=== PATIENT | male | born 1935 | race Caucasian/White ===

== ENCOUNTER → 2016-08-12 | Outpatient (CLI) | payer MEDICARE, BC, OTHER ==
[~2016-08-12] MED LIST: ADV250INH INH; ATEN25TA PO; ATOR1TAB19 PO; AUGM875T27 PO; COUM1TAB17 PO; COUM6TAB PO; FLAG500T PO; FURO20TA2 PO; MULT1TAB8 PO; TYLE325T5 PO; VITA500046 PO
--- NOTE | 2016-08-12 18:23 | REP ---
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 The recent CT of the abdomen 07/27/2016 identified a large right abdominal wall mass. Whole body PET CT scanning is performed from skull base to the upper thighs. Neck and supraclavicular areas: There is artifactual uptake in the splenium capitis muscles at the occiput bilaterally. There is focal hypermetabolic uptake posteromedially in the right orbit/wall of the right maxillary sinus with a standard uptake value of 9.7. This focus measures approximate 1 cm in diameter. There is artifactual uptake in the vocal cords. Chest: There are no hypermetabolic foci. Abdomen, pelvis and upper thighs: There is a large mass in the wall of the abdomen on the right, similar to that on the comparison CT. The majority of this mass appears to be low density although there are small interspersed foci of soft tissue density. Uptake within a sales donor recruitment representative soft tissue focus measures a standard uptake value of 1.5, non hypermetabolic. There is diffuse intense uptake throughout the gastric fundus with a standard uptake value of 8.3, hypermetabolic. There is nonspecific bowel uptake. Impression: There is a 1 cm hypermetabolic focus posteromedially in the wall of the right orbit/wall of the right maxillary sinus. Consider ENT/ophthalmology consult in view of the history of carcinoma of the larynx. The patients known large mass in the right abdominal wall demonstrates no hypermetabolic uptake. There is intense hypermetabolic uptake throughout the wall of the gastric fundus. Gastroscopy might be considered for further evaluation. The study is performed with 9.7 mCi of F 18 FDG. Signed by Allen Feliciano MD 08/12/2016 06:14 P
== END ==
LOC: M RAD 13:09
PROVIDERS: ATTEND Internal Medicine
DX: R22.2 Localized swelling, mass and lump, trunk (principal); Z85.21 Personal history of malignant neoplasm of larynx; Z08 Encounter for follow-up examination after completed treatment for malignant neoplasm
CPT/HCPCS: 78815; A9552

== ENCOUNTER → 2016-09-03 | Outpatient (CLI) | payer MEDICARE, BC, OTHER ==
[~2016-09-03] VITALS: Ht 167.6 cm; Wt 110.7 kg
[~2016-09-03] MED LIST changes: +ALLO10TA PO; +FURO1TAB15 PO; +NS 1,000 ML IV SCH; +SPIR25TA2 PO; +VITA2000 PO
--- NOTE | 2016-09-03 11:41 | ROOR ---
Patient Name: Jet Weems Procedure Date: 09/03/2016 11:15 AM Date of : 1935 Age: 80 Room: [facility] Gender: Male Note Status: Finalized Procedure: Upper GI endoscopy Indications: Abnormal PET scan of the GI tract Providers: Oleg Sousa Jr, MD Referring MD: Nikki Laura DO Requesting Provider: Medicines: Propofol per Anesthesia Complications: No immediate complications. Procedure: Pre-Anesthesia Assessment: - Prior to the procedure, a History and Physical was performed, and patient medications and allergies were reviewed. The patient is competent. The risks and benefits of the procedure and the sedation options and risks were discussed with the patient. All questions were answered and informed consent was obtained. Patient identification and proposed procedure were verified by the physician and the nurse in the pre-procedure area and in the procedure room. Mental Status Examination: alert and oriented. Airway Examination: normal oropharyngeal airway and neck mobility. Respiratory Examination: clear to auscultation. CV Examination: normal. ASA Grade Assessment: II - A patient with mild systemic disease. After reviewing the risks and benefits, the patient was deemed in satisfactory condition to undergo the procedure. The anesthesia plan was to use moderate sedation / analgesia (conscious sedation). Immediately prior to administration of medications, the patient was re-assessed for adequacy to receive sedatives. The heart rate, respiratory rate, oxygen saturations, blood pressure, adequacy of pulmonary ventilation, and response to care were monitored throughout the procedure. The physical status of the patient was re-assessed after the procedure. The Endoscope was introduced through the mouth, and advanced to the third part of duodenum. The upper GI endoscopy was accomplished without difficulty. The patient tolerated the procedure well. Findings: The middle third of the esophagus and lower third of the esophagus were normal. Non-severe esophagitis was found at the gastroesophageal junction. Patchy moderate inflammation with hemorrhage characterized by adherent blood, congestion (edema), erythema and friability was found in the gastric body, in the gastric antrum and in the prepyloric region of the stomach. Biopsies were taken with a cold forceps for histology. The first portion of the duodenum, second portion of the duodenum and third portion of the duodenum were normal. Patchy moderate inflammation characterized by congestion (edema), erythema, friability and granularity was found in the duodenal bulb. A non-bleeding Zenker's diverticulum with a small opening, no impacted food and no stigmata of recent bleeding was found. Impression: - Normal middle third of esophagus and lower third of esophagus. - Non-severe reflux esophagitis. - Gastritis with hemorrhage. Biopsied. - Normal first portion of the duodenum, second portion of the duodenum and third portion of the duodenum. - Duodenitis. - Zenker's diverticulum. Recommendation: - Discharge patient to home (ambulatory). - Return to my office in 3 weeks. Oleg Sousa MD Oleg Sousa Jr, MD 09/03/2016 11:40:38 AM This report has been signed electronically. Number of Addenda: 0 Note Initiated On: 09/03/2016 11:15 AM Estimated Blood Loss: Estimated blood loss: none.
[2016-09-03 12:00] VITALS: BP 101/67
== END | disposition home or self-care (01) ==
LOC: M OPP 10:42
PROVIDERS: ATTEND Surgery
DX: R93.8 Abnormal findings on diagnostic imaging of other specified body structures (principal); K21.0 Gastro-esophageal reflux disease with esophagitis; K29.71 Gastritis, unspecified, with bleeding; K29.80 Duodenitis without bleeding; K22.5 Diverticulum of esophagus, acquired; I71.4 Abdominal aortic aneurysm, without rupture; I12.9 Hypertensive chronic kidney disease with stage 1 through stage 4 chronic kidney disease, or unspecified chronic kidney disease; E78.5 Hyperlipidemia, unspecified; I48.91 Unspecified atrial fibrillation; E66.9 Obesity, unspecified; I50.9 Heart failure, unspecified; I25.2 Old myocardial infarction; K80.20 Calculus of gallbladder without cholecystitis without obstruction; M19.90 Unspecified osteoarthritis, unspecified site; R06.2 Wheezing; J44.9 Chronic obstructive pulmonary disease, unspecified; R06.02 Shortness of breath; Z85.818 Personal history of malignant neoplasm of other sites of lip, oral cavity, and pharynx; N18.4 Chronic kidney disease, stage 4 (severe); R60.9 Edema, unspecified; Z85.828 Personal history of other malignant neoplasm of skin; Z87.891 Personal history of nicotine dependence; Z79.01 Long term (current) use of anticoagulants; Z79.899 Other long term (current) drug therapy

== ENCOUNTER → 2017-09-27 | Outpatient (REF) | payer MEDICARE, BC, OTHER ==
[2017-09-27 14:08] LABS: INR 3.86; PROTHROMBIN TIME 39.9 SECONDS (12.4-14.5)
== END ==
LOC: M LAB REF 13:15
DX: Z79.01 Long term (current) use of anticoagulants (principal); I48.2 Chronic atrial fibrillation
CPT/HCPCS: 85610

== ENCOUNTER → 2018-08-16 | Outpatient (CLI) | payer MEDICARE, BC, OTHER ==
[~2018-08-16] MED LIST changes: -AUGM875T27 PO; +AUGM875T28 PO; -FURO1TAB15 PO; +FURO80TA2 PO; -NS 1,000 ML IV SCH; +SPIR-10 PO; -SPIR25TA2 PO
--- NOTE | 2018-08-16 10:50 | RADONC ---
RADIATION ONCOLOGY CONSULTATION NOTE DATE: 08/16/2018 CHART NUMBER: [id number] DIAGNOSIS: Liposarcoma. STAGE: Recurrent. CONSULTATION NOTE: Mr. Pulido is a very pleasant, 82-year-old white male with the diagnosis of an extensive right retroperitoneal liposarcoma who is presenting to us today for discussion of possible low-dose radiation to the area to slow its growth. HISTORY OF PRESENT ILLNESS: The patient was initially seen by me on 12/10/2005. Apparently, x-rays done in early 2005 found an abdominal aortic aneurysm. On 10/29/2015, a 5 cm paraspinal mass adjacent to the psoas muscle was noted. Pathology revealed a right retroperitoneal mass consistent with an atypical lipomatous lesion. There were some bizarre and pleomorphic nuclei identified and there was a great concern for a low grade liposarcoma. By December of 2005, the mass was just inferior to the right kidney. At that time, the patient underwent surgical resection of his extensive right retroperitoneal liposarcoma and then en bloc right hemicolectomy and right nephroureterectomy in May 2006. Final pathology revealed a 30.4 cm well-differentiated liposarcoma. The patient has been followed and has stage IV renal failure and recently was found to have a right flank mass by Dr. Garcia, his licensing and registration director. A CT scan done on 06/01/2018 showed a complex mass measuring 13.9 cm x 13.8 cm x 11.4 cm in the right abdominal wall extending into the right retroperitoneal space, once again consistent with a liposarcoma. The patient has a history of atrial fibrillation as well as a myocardial infarction and congestive heart failure. He also has stage IV kidney failure. He was seen by Dr. Worthy, who discussed surgery with him. Surgical resection would require resection of the right flank wall and retroperitoneal tumor. It would also remove the mass from the inguinal canal. The reconstruction would require a large piece of mesh. The patient was definitely against surgery as he is asymptomatic at this time and having no problems. He is aware of his great risks of surgery considering his other illnesses. The patient as noted above has no symptoms at this time and overall says he feels fine. In light of this, he came into my office saying he has decided against any radiation at the present time. PAST MEDICAL HISTORY: The patient's past medical history is as noted above. He also has a history of hyperlipidemia. He had an abdominal aortic hernia repair in the past. He has had cataract surgery. ALLERGIES: The patient has NO KNOWN DRUG ALLERGIES. SOCIAL HISTORY: The patient had smoked one pack of cigarettes per day for 60 years. He quit in April 2013. He drinks alcohol socially. FAMILY HISTORY: The patient's family history is positive for a mother with colon cancer. REVIEW OF SYSTEMS: The patient's review of systems is positive for some shortness of breath, hearing loss and decreased energy. It is otherwise noncontributory. Denies nausea, vomiting, fevers, chills, night sweats, diplopia, headaches, anxiety or depression, anorexia, weight loss, visual disturbances, chest pain, urinary or bowel difficulties, bone pain, or neurological problems. PHYSICAL EXAMINATION: The patient is a well-developed, well-nourished male in no acute distress. HEENT exam is normocephalic, atraumatic. Extraocular movements are intact. There is no palpable cervical, supraclavicular, infraclavicular, axillary, or inguinal lymphadenopathy present. Lungs are clear to auscultation and percussion. Heart has a regular rate and rhythm. Abdominal examination reveals a right-sided flank mass, which is firm and fixed to the abdominal wall consistent with his above history. Skeletal examination reveals no tenderness to pressure or percussion of the bony skeleton. Extremities reveal no clubbing, cyanosis, or edema. Neurologic exam is grossly intact, as is the remainder of the physical examination. ASSESSMENT: I had a very lengthy discussion with this patient. I made clear to him that at this point he cannot really make a wrong decision. I asked him to feel secure in whatever decision he makes. I explained him that radiation would not be curative and the only goal of radiation would be to perhaps a slow down the growth of this tumor. I showed the patient his CT scan and explained him the proximity of the small bowel which limits our radiation dose. Luckily the kidney on that side has been removed and so we could deliver approximately 4500 cGy to the region if he so desired. Since this is not a curative treatment the goal is palliation, and at this time, the patient has nothing to palliate. He stated clearly that has a good quality of life at this time and does not wish to compromise that at all. He reports that this is the reason he did not have the surgery. I cannot disagree with this patient's reason. In light of this, I have let him know that we are available to him should he change his mind. I have given him my cell phone number as well as the office number and we are available to him at anytime if he decides he wishes to undergo radiation. I do not see any great herron in this considering that he has had this disease for 13 years. I let him know that eventually this will be causing him some problems and we could always try radiation at that time as a palliative issue if he so desires. I have not set him up at this time for any followup in our office except on a p.r.n. basis. Thank you for allowing us to participate in the care of this very pleasant gentleman. If I could be of any further assistance, please see us feel free to contact me at anytime. As always, warm regards. Copy to: Dr. Garcia cc: Saul Worthy MD MTDD
== END ==
LOC: M ONCR 08:53
PROVIDERS: ATTEND Radiology Radiation Oncology
DX: C48.0 Malignant neoplasm of retroperitoneum (principal)

== ENCOUNTER → 2018-09-06 | Outpatient (REF) | payer MEDICARE, OTHER | LOC: M LAB REF 16:44 | PROVIDERS: ATTEND Internal Medicine | DX: S90.425A Blister (nonthermal), left lesser toe(s), initial encounter (principal) ==

== ENCOUNTER 2019-02-02 12:04 | Inpatient (IN) | payer MEDICARE, BC, OTHER ==
[~2019-02-02] VITALS: Ht 172.7 cm; Wt 94.2 kg
[2019-02-02] MEDS ORDERED: D200CAP3 PO (12:23)
[2019-02-02] MEDS ORDERED: METO1TAB87 PO (12:23)
[2019-02-02] MEDS ORDERED: OMEP-221 PO (12:23)
[2019-02-02] MEDS ORDERED: CALC1CAP31 PO (12:23)
[2019-02-02] MEDS ORDERED: WARF-23 PO ×2 (12:23)
[2019-02-02] MEDS ORDERED: IPRATROPIUM 0.5MG/ALBUTEROL 2.5MG INH SOL UD 3ML (DUONEB)(J7620) NEB ONE (12:45)
[2019-02-02] MEDS ORDERED: FUROSEMIDE 40 MG/4 ML VIAL (J1940) IV ONE (12:45)
[2019-02-02 12:59] LABS: BASO # 0.1 10^3/uL (0.0-0.2); BASO % 0.6 % (0.0-1.0); EOS # 0.1 10^3/uL (0.0-0.5); EOS % 1.2 % (0.0-3.0); HEMATOCRIT 43.1 % (42.0-52.0); HEMOGLOBIN 13.3 g/dl (13.5-17.5); LYMPH # 0.9 10^3/uL (1.5-5.0); MEAN CORPUSCULAR HEMOGLOBIN 29.8 pg (27.0-33.0); MEAN CORPUSCULAR HGB CONC 30.9 g/dl (32.0-36.5); MEAN CORPUSCULAR VOLUME 96.6 fl (80.0-96.0); MONO # 0.8 10^3/uL (0.0-0.8); NEUTROPHILS # 9.3 10^3/uL (1.5-8.5); NEUTROPHILS % 82.8 % (36.0-66.0); PLATELET COUNT, AUTOMATED 224 10^3/uL (150-450); RED BLOOD COUNT 4.46 10^6/uL (4.30-6.10); WHITE BLOOD COUNT 11.2 10^3/uL (4.0-10.0)
[2019-02-02 13:07] LABS: ABG O2 SATURATION 89.5 % (95.0-99.0); ABG PARTIAL PRESSURE O2 61.7 mmHg (75.0-100.0); ABG STANDARD HCO3 27.8 MEQ/L (22.0-26.0); ABG TOTAL CO2 33.9 MEQ/L (23.0-31.0); ABG pH (ARTERIAL) 7.323 UNITS (7.350-7.450)
--- NOTE | 2019-02-02 13:09 | REP ---
PORTABLE CHEST: AP portable view of the chest is performed and compared to prior study 10/29/2008. There is cardiomegaly again noted. Basilar interstitial coarsening is stable. No acute infiltrate is seen. There is calcification of the thoracic aorta. The mediastinal silhouette is unchanged. IMPRESSION: Cardiomegaly. No acute infiltrate. Electronically Signed by Allen Davies MD 02/02/2019 01:37 P
[2019-02-02 13:13] LABS: INR 3.69; PROTHROMBIN TIME 36.6 SECONDS (11.8-14.0)
[2019-02-02 13:47] LABS: ALBUMIN 3.8 GM/DL (3.2-5.2); BILIRUBIN,DIRECT 0.2 MG/DL (0.0-0.2); BILIRUBIN,TOTAL 0.5 MG/DL (0.2-1.0); CALCIUM LEVEL 9.5 MG/DL (8.8-10.2); CK-MB VALUE MASS 3.5 NG/ML (<3.6); CREATININE FOR GFR 1.87 MG/DL (0.70-1.30); GLOMERULAR FILTRATION RATE 36.9 (>35); MB/CK RELATIVE INDEX 4.32 (< OR =4); POTASSIUM SERUM 3.9 MEQ/L (3.5-5.1); TOTAL PROTEIN 6.6 GM/DL (6.4-8.2); TROPONIN I 0.03 NG/ML (< 0.10)
[2019-02-02] MEDS ORDERED: IPRATROPIUM 0.5MG/ALBUTEROL 2.5MG INH SOL UD 3ML (DUONEB)(J7620) NEB PRN (16:15)
[2019-02-02] MEDS: FUROSEMIDE 100 MG/10 ML VIAL (J1940) IV SCH (18:28)
[2019-02-02 19:45] VITALS: BP 138/82
[2019-02-02] MEDS ORDERED: ACETAMINOPHEN TAB 650MG DOSE (2X325MG) PO ONE (20:45)
--- NOTE | 2019-02-02 20:48 | HPE ---
DATE OF ADMISSION: 02/02/2019 PRIMARY CARE PROVIDER: Dr. Nikki Laura PRINCIPAL DIAGNOSIS: Decompensated congestive heart failure. HISTORY: Jet Weems is an 83-year-old patient of Dr. Nikki Laura who has had increasing lower extremity edema, shortness of breath, cough over several days. He presents to the emergency room with decompensated congestive heart failure. He is being admitted for further treatment. He has a history, he says, of "30 years of congestive heart failure," but he does not have an identified metallurgical inspector. MEDICAL HISTORY: His medical history shows atrial fibrillation, chronic obstructive pulmonary disease (COPD), carcinoma of the larynx, abdominal aortic aneurysm, history of coronary artery disease or ischemic heart disease, hypertensive heart disease, chronic kidney disease stage III. SURGICAL HISTORY: Basal cell carcinoma, anal fistula 02/10, carcinoma surgery of the larynx 09/11, laser surgery for laryngeal carcinoma 10/12, 11/11, 07/13, 10/2009, 12/2010, removal of 20 kilogram liposarcoma right side, removal of right kidney and partial colectomy with appendectomy at [facility] 09/12, incisional hernia repair 04/15, cataract extraction 2014, blepharoplasty 2014, colonoscopy 2013. FAMILY HISTORY: Mother had colon cancer. SOCIAL HISTORY: Quit smoking 2013 after 60 pack years. Alcohol use is rare. REVIEW OF SYSTEMS: No chest pain, palpitations, epistaxis, rectal bleeding or urinary bleeding. MEDICATIONS: See reconciliation list. PHYSICAL EXAMINATION: Blood pressure 140/67, pulse of 92, respiratory rate 18, 92% oxygen (O2) saturation on one liter. General Appearance: He is resting comfortably, lying sitting upright. Pupils equal and reactive to light. Tympanic membranes (TMs) normal. Pharynx benign. He is hoarse with abdominal speech pattern. No facial droop or weakness. Jugular venous distention (JVD) is present. Lungs have decreased breath sounds, rales at both bases. Heart: Regular rate and rhythm, 1/6 systolic ejection murmur. Abdomen: Soft, obese, nontender. No masses. 2+ peripheral edema, venous stasis changes. LABORATORY: White count 11.2, hemoglobin 13.3, platelets 244. Sodium 145, potassium 3.9, BUN 36, creatinine 1.87, BNP 4200, INR 3.7. Chest x-ray: Cardiomegaly, interstitial markings. IMPRESSION: 1. Decompensated congestive heart failure. Will get an echocardiogram and initiate diuresis with intravenous Lasix, monitor electrolytes on a daily basis, salt and fluid restriction advised. 2. Atrial fibrillation Rate is controlled. Continue metoprolol. Hold warfarin today due to excessive anticoagulation, daily INRs have been ordered. 3. Laryngeal cancer. Followed by [facility] N[facility] Throat (ENT). 4. Chronic kidney disease. Continue calcitriol. I do not know his baseline renal function. Daily labs have been ordered. 5. Hyperlipidemia. Continue atorvastatin 40 mg daily. 6. History of gout. Continue allopurinol [address] Mays will be managing him after admission.
[2019-02-02] MEDS: IPRATROPIUM 0.5MG/ALBUTEROL 2.5MG INH SOL UD 3ML (DUONEB)(J7620) NEB SCH (22:13)
[2019-02-02 23:59] VITALS: BP 130/76
[2019-02-03] VITALS (7 sets, daily range): BP systolic 114–161; BP diastolic 45–81
--- NOTE | 2019-02-03 00:04 | ECGEPIP ---
[facility] - ED Test Date: 2019-02-02 Pat Name: JEOVANY GALE Department: Room: - Gender: Male Ground Products Director: [facility] : 1935 Requested By: OVIDIO Lance Order Number: [id number] Reading MD: Danyel Lacey Measurements Intervals Aiken Rate: 84 P: MS: 0 QRS: -54 QRSD: 121 T: -12 QT: 353 QTc: 418 Interpretive Statements ATRIAL FIBRILLATION WITH ABERRANT CONDUCTION OR VENTRICULAR PREMATURE COMPLEXES LEFT ANTERIOR FASCICULAR BLOCK NO PRIORS FOR COMPARISON Electronically Signed on 02-03-2019 0:04:27 EDT by Danyel Lacey
[2019-02-03] MEDS: IPRATROPIUM 0.5MG/ALBUTEROL 2.5MG INH SOL UD 3ML (DUONEB)(J7620) NEB SCH ×5 (00:13→23:58)
[2019-02-03] MEDS ORDERED: METOPROLOL 5 MG/5 ML VIAL IV STA (00:38)
[2019-02-03 00:41] LABS: ALBUMIN 3.7 GM/DL (3.2-5.2); BILIRUBIN,TOTAL 0.5 MG/DL (0.2-1.0); CALCIUM LEVEL 9.3 MG/DL (8.8-10.2); CK-MB VALUE MASS 3.5 NG/ML (<3.6); CREATININE FOR GFR 2.02 MG/DL (0.70-1.30); GLOMERULAR FILTRATION RATE 33.7 (>35); MAGNESIUM LEVEL 1.6 MG/DL (1.8-2.4); MB/CK RELATIVE INDEX 4.27 (< OR =4); PHOSPHORUS LEVEL 4.6 MG/DL (2.5-4.9); POTASSIUM SERUM 4.1 MEQ/L (3.5-5.1); TOTAL PROTEIN 6.4 GM/DL (6.4-8.2); TROPONIN I 0.03 NG/ML (< 0.10)
[2019-02-03 00:54] LABS: ABG SITE NOT GIVEN
[2019-02-03 00:57] LABS: ABG BASE EXCESS 2.6 (-2.0-2.0); ABG HCO3 33.1 MEQ/L (22.0-26.0); ABG O2 SATURATION 98.2 % (95.0-99.0); ABG PARTIAL PRESSURE O2 125.3 mmHg (75.0-100.0); ABG STANDARD HCO3 26.8 MEQ/L (22.0-26.0); ABG TOTAL CO2 35.6 MEQ/L (23.0-31.0)
[2019-02-03 00:58] LABS: ABG PARTIAL PRESSURE CO2 82.2 mmHg (35.0-45.0); ABG pH (ARTERIAL) 7.223 UNITS (7.350-7.450)
[2019-02-03] MEDS ORDERED: FUROSEMIDE 20 MG/2 ML VIAL (J1940) IV ONE (01:00)
--- NOTE | 2019-02-03 01:26 | IPNPDOC ---
Text Note Date of Service The patient was seen on 02/03/19. NOTE S: Called to bedside by nursing staff for increasing SOB and audible wheezing. Patient was assessed by respiratory therapy and given a breathing treatment, with resultant increased air movement in the bases. Patient does not appear in acute distress though expiratory wheezing remain audible. EKG and cardiac enzymes were performed and both were negative. Repeat ABG ordered and results listed below. O: Vitals: Temperature: 97.5, pulse: 113, respiratory rate: 30, blood pressure 158/87, pulse ox 97% on 2 L Physical Exam: Gen.: Patient alert and oriented, conversant Pulmonary: Diminished breath sounds in the bases bilaterally with scattered wheezing throughout. Heart: Regular rate and rhythm with faint systolic ejection murmur Extremities: 2+ pitting edema bilaterally Labs: Repeat ABG demonstrates a pH of 7.23, PCO2 of 82.2 PO2 of 125.3 Repeat chemistry showed potassium of 4.1 increased from 3.9. BUN/creatinine of 37/2.02 Troponins negative, EKG positive for atrial fibrillation Imaging: X-ray (02/03/19): Pending official radiology read. Imaging appears to demo nstrate increasing opacity particularly in the right lung, middle lobe. No evidence of effusions. A/P: 83-year-old gentleman with increasingly decompensated congestive heart failure and respiratory acidosis. Decompensated congestive heart failure Patient transferred to ICU for BiPAP given increasing respiratory acidosis. Repeat electrolytes show a decreased magnesium level of 1.6 Discussed case with cutter grinder operator. Agreeable with ICU transfer and trial of BiPAP. Suspect underlying COPD given extensive smoking history. If unable to tolerate BiPAP, consider continued neb treatments and steroids. Bazan cath placement for monitoring of urinary output. Pt previously ordered 80 mg Lasix decreased to 40 mg and administered prior to transfer given evidence of RASHAD. If decreased output, will plan to give additional 40 mg Lasix IV. Roof Painter discussed goals of care with patient, agreeable to DNR/DNI status. Atrial fibrillation 5 mg metoprolol IV given as patient's rates were climbing into the 120s-130s with bouts of bigemini. VS,Fishbone, I+O VS, Fishbone, I+O Laboratory Tests 02/02/19 12:39 Red Blood Count 4.46, Mean Corpuscular Volume 96.6 H, Mean Corpuscular Hemoglobin 29.8, Mean Corpuscular Hemoglobin Concent 30.9 L, Red Cell Distribut ion Width 15.7 H, Neutrophils (%) (Auto) 82.8 H, Lymphocytes (%) (Auto) 8.0 L, Monocytes (%) (Auto) 7.0 H, Eosinophils (%) (Auto) 1.2, Basophils (%) (Auto) 0.6, Neutrophils # (Auto) 9.3 H, Lymphocytes # (Auto) 0.9 L, Monocytes # (Auto) 0.8, Eosinophils # (Auto) 0.1, Basophils # (Auto) 0.1 02/02/19 23:57 Calcium Level 9.3, Phosphorus Level 4.6, Aspartate Amino Transf (AST/SGOT) 13, Alanine Aminotransferase (ALT/SGPT) 26, Total Creatine Kinase 82, Alkaline Phosphatase 115, Total Bilirubin 0.5, Total Protein 6.4, Albumin 3.7 Vital Signs Date Time Temp Pulse Resp B/P (MAP) Pulse Ox O2 Delivery O2 Flow Rate FiO2 02/03/19 00:49 113 158/87 02/03/19 00:10 30 02/02/19 23:59 97.5 97 2.0 02/02/19 19:15 Nasal Cannula I&O- Last 24 Hours up to 6 AM 02/03/19 06:00 Intake Total 0 ml Output Total 400 ml Balance -400 ml GME ATTESTATION GME ATTESTATION The faculty preceptor is aware and concurs with the plan as stated in the body of this note and will attest to such by his/her cosignature. NOMAN CAMARA DO Feb 03, 2019 01:26 JOE GALARZA MD Feb 06, 2019 05:53
[2019-02-03] MEDS ORDERED: MAG SULF 1GM/100ML (MAG RUN) 1 GM in IV 1 EA IV ONE (02:15)
[2019-02-03 04:40] LABS: ABG SITE NOT GIVEN
[2019-02-03 04:43] LABS: ABG BASE EXCESS 6.4 (-2.0-2.0); ABG HCO3 35.5 MEQ/L (22.0-26.0); ABG O2 SATURATION 93.5 % (95.0-99.0); ABG PARTIAL PRESSURE CO2 73.7 mmHg (35.0-45.0); ABG PARTIAL PRESSURE O2 72.3 mmHg (75.0-100.0); ABG STANDARD HCO3 30.1 MEQ/L (22.0-26.0); ABG TOTAL CO2 37.8 MEQ/L (23.0-31.0); ABG pH (ARTERIAL) 7.301 UNITS (7.350-7.450)
[2019-02-03] MEDS ORDERED: methylPREDNISolone INJ 40 MG/1 ML VIAL (J2920) IV ONE (05:00)
[2019-02-03 05:11] LABS: HEMATOCRIT 46.2 % (42.0-52.0); HEMOGLOBIN 13.7 g/dl (13.5-17.5); MEAN CORPUSCULAR HEMOGLOBIN 30.1 pg (27.0-33.0); MEAN CORPUSCULAR HGB CONC 29.7 g/dl (32.0-36.5); MEAN CORPUSCULAR VOLUME 101.5 fl (80.0-96.0); PLATELET COUNT, AUTOMATED 217 10^3/uL (150-450); RED BLOOD COUNT 4.55 10^6/uL (4.30-6.10); WHITE BLOOD COUNT 11.5 10^3/uL (4.0-10.0)
--- NOTE | 2019-02-03 05:12 | CR ---
DATE OF CONSULTATION: 02/03/2019 CHIEF COMPLAINT: Shortness of breath. HISTORY OF PRESENT ILLNESS: Mr. 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 The patient reports he was on Lasix as a home medication; however, he has not been taking it. He therefore has noticed some decreased urination in the past few days. The patient denies any chest pain, has not had any fevers or chills. He does have a cough, but is not productive. The patient has also noted some increased abdominal distension as well. He denies any abdominal pain. No nausea or vomiting. He does have some pain in the rectal area. The patient has a reported history of chronic obstructive pulmonary disease (COPD), although he denies being on any inhalers currently. He thinks he may have been told he has COPD in passing and had previously been prescribed inhalers, which he was noncompliant with as he did not take it help with his breathing and so has not continued with that. The patient also reports that he has recurrence of his liposarcoma with a palpable mass in his abdomen. He follows with oncology, as well as was seen by radiation oncology and surgery. The patient declined surgery given his other comorbidities and the risks with such an extensive surgery with the large mass. When he was seen by radiation oncology, the patient was relatively asymptomatic from the mass and it was discussed that as radiation would not be curative in this instance but slow the growth of his tumor and be for palliation only, and given that he does not have any active symptoms, as well as given the location of the tumor, there would be some limits with the radiation dose, he decided with the input from his radiation oncologist to hold off on radiation treatment. PAST MEDICAL HISTORY / SURGICAL HISTORY LIST: 1. Atrial fibrillation on Coumadin. 2. Chronic obstructive pulmonary disease (COPD). 3. 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 4. Basal-cell carcinoma anal fistula in 2003. 5. Coronary artery disease. 6. Congestive heart failure (CHF). 7. Chronic kidney disease (CKD). 8. Abdominal aortic aneurysm. 9. History of a liposarcoma on the right side with a partial colectomy and appendectomy and removal of his right kidney in 2006 10. Incisional hernia repair. 11. Cataract extraction. 12. Blepharoplasty FAMILY HISTORY: Mother with history of colon cancer. SOCIAL HISTORY: Former smoker, 60 pack years, quit in 2013. Rare alcohol use ALLERGIES:: No known drug allergies. . HOME MEDICATIONS LIST: - allopurinol - atorvastatin - calcitriol - vitamin D - Lasix 80 mg daily - metoprolol 25 mg daily - multivitamin - omeprazole - Coumadin 5 mg five days a week and 7.5 two days a week PHYSICAL EXAMINATION: Temperature 97.5, pulse of 113, respirations 38, blood pressure 158/87, O2 saturation 97% on 2 liters nasal cannula. Inputs are not documented. Outs reported as 400 mL. GENERAL: The patient is an obese male. He is sitting at the side of the bed, is awake and alert and oriented x3, but does appear intermittently drowsy. The patient has a hoarse voice but is able to speak in complete sentences. HEENT: Normocephalic, atraumatic. Moist mucous membranes. Pupils are reactive to light. JVD noted. CARDIOVASCULAR: Irregularly irregular, normal S1-S2, faint systolic ejection murmur LUNGS: Diminished breath sounds bilaterally with expiratory wheezing and more decreased breath sounds at the bases. No rhonchi noted. ABDOMEN: Soft, obese with a palpable firm mass in the right flank area. Nontender to palpation. LOWER EXTREMITIES: +2 pitting edema bilaterally with chronic venous stasis changes. LABORATORY DATA: WBC 11.22, hemoglobin 13.3, platelets 224. Chemistry: Sodium 145, potassium 4.1, chloride 100, bicarbonate 39 and BUN 37, creatinine 2.02. Glucose is 112, magnesium is 1.6, AST, ALT within normal limits. BNP 4237, troponin negative x2. INR 3.69. Arterial blood gas (ABG) initially on admission: pH 7.323, pCO2 of 63, pO2 of 61 Repeat ABG overnight 7.223, pCO2 of 82.2 and pO2 of 125.3. IMAGING: Chest x-ray shows cardiomegaly with increased interstitial markings bilaterally and atelectasis in the bases of the lungs. ASSESSMENT/PLAN: The patient is an 83-year-old male with a history of laryngeal cancer status post surgery, chronic obstructive pulmonary disease (COPD) not on home oxygen, coronary artery disease, congestive heart failure (CHF), atrial fibrillation on anticoagulation, history of a recurrent liposarcoma with previous history of a partial hemicolectomy and nephrectomy, chronic kidney disease (CKD), who is here with complaints of increasing shortness of breath and lower extremity edema for the past few days reports he has been noncompliant with his diuretics and has had decreasing urine output. On admission, the patient was noted to have evidence of lower extremity edema and chest x-ray shows some increased interstitial markings and vascular congestion consistent with pulmonary edema. He was also noted to have a significantly elevated BNP consistent with decompensated heart failure. The patient was given IV Lasix; however, has not been documented to have significant output. His initial ABG showed evidence of some mild worsening of his chronic hypercarbic respiratory failure, but a repeat ABG overnight showed continued worsening of his acute on chronic hypercarbic respiratory failure. This is likely in the setting of his decompensated CHF, but he does have a previous history of COPD and he did have some increased wheezing noted on examination. - Would start the patient on BiPAP for his acute on chronic hypercarbic respiratory failure. The patient was initially trial on settings of 15/8, but was noted to have tidal volume of only in the 200s so his settings were adjusted to 18/8 with a respiratory rate of 14 and FiO2 of 30%. Will repeat ABG on these settings and adjust further if needed. - Continue with the Lasix for diuresis. The patient was given an additional 40 mg IV Lasix at midnight. A Bazan was ordered to more accurately monitor his ins and outs; and if he has not had significant output with the midnight dose of Lasix, will give an additional 40 mg IV Lasix. He does have some evidence of CKD with an unknown baseline. He may have a component of acute kidney injury on chronic kidney disease (CKD) from his congestive heart failure (CHF) with cardiorenal syndrome. - His magnesium was low, will order repletion and continue to monitor his electrolytes and replete as needed - Continue with DuoNebs every 6 hours. Patient was noted to have wheezing and diminished air entry. Was given dose of solumedrol 40mg IV with improvement. - Discussed with the patient about goals of care. He explained that with his recurrent liposarcoma and given he did not want to proceed with surgery or radiation and he was not a chemotherapy candidate given his significant comorbidities his goals of care were about maximizing quality of life over potential quantity. After discussion, the patient expressed his wishes that he would like to be DO NOT RESUSCITATE and DO NOT INTUBATE, but he is agreeable to a trial of BiPAP. Deep vein thrombosis (DVT) prophylaxis. The patient is on Coumadin. INR is mildly supra-therapeutic. Would continue dose adjustments as per primary team. Code status DO NOT RESUSCITATE/DO NOT INTUBATE. The patient being transferred to ICU for BiPAP and closer monitoring. Total critical care time not including any procedures approx 1 hour and 50 mins MTDD
[2019-02-03] MEDS: FUROSEMIDE 100 MG/10 ML VIAL (J1940) IV SCH ×3 (05:20→11:45)
[2019-02-03 05:23] LABS: INR 3.91; PROTHROMBIN TIME 38.4 SECONDS (11.8-14.0)
[2019-02-03 05:33] LABS: CALCIUM LEVEL 9.6 MG/DL (8.8-10.2); CREATININE FOR GFR 2.06 MG/DL (0.70-1.30)
[2019-02-03] MEDS: CALCITRIOL 0.25 MCG CAP (S0169) PO SCH (08:29)
[2019-02-03] MEDS: VITAMIN D 1,000 INTERNATIONAL UNITS TABLET PO SCH (08:29)
[2019-02-03] MEDS: ATORVASTATIN 10 MG TAB PO SCH (08:30)
[2019-02-03] MEDS ORDERED: ALLOPURINOL 100 MG TAB PO SCH (09:00)
[2019-02-03] MEDS ORDERED: METOPROLOL TART 25 MG TABLET PO SCH ×2 (09:00→21:00)
[2019-02-03 10:05] LABS: MAGNESIUM LEVEL 2.1 MG/DL (1.8-2.4)
--- NOTE | 2019-02-03 11:51 | REP ---
Portable chest, 11:42 p.m., single AP view with the patient semi upright: Comparison is from 12:49 p.m. earlier this same date. The patient is rotated. There is cardiomegaly, unchanged. There is chronic interstitial coarsening compared to 10/29/2008, suggestive of chronic lung disease. The cardiomegaly is unchanged. The carly, mediastinum, skeletal structures are unchanged. Impression: Chronic cardiomegaly. Chronic mild interstitial coarsening. No acute findings. Electronically Signed by Allen Feliciano MD 02/03/2019 11:41 A
--- NOTE | 2019-02-03 12:35 | IPNPDOC ---
Text Note Date of Service The patient was seen on 02/03/19. NOTE Subjective: Patient complains of shortness of breath, he developed discolora tion overnight he was placed on the BiPAP. When I saw him the morning he still has labored breathing, no wheezes. Objective: Physical Exam: Obese male sitting up Gen.: Patient alert and oriented, conversant Pulmonary: Diminished breath sounds in the bases bilaterally no wheezes Heart: S1-S2, tachycardia at rate 120 Abdomen: Nontender, moderately distended Neuro: Cranial nerves from 2 through 12 intact Extremities: 1+ pitting edema bilaterally Assessment and plan: Patient is 83 years old male with past mental history of COPD, atrial fibrillation, CHF presented hospital with increased shortness of breath secondary to CHF exacerbation CHF exacerbation Patient developed significant dyspnea secondary to volume overload, patient was not compliant to his medical regimen. Patient developed good urine output I's and O's Continue current diuresis Cardiac diet Echo pending Acute on chronic hypercarbic respiratory failure Most likely secondary to CHF exacerbation. Patient doesn't have wheezes on the auscultation continue diuresis Monitor blood gas BiPAP when necessary, settings 18/8 with a respiratory rate of 14 and FiO2 of 30%. Electrolytes imbalance Magnesium was replaced COPD Most likely his dyspnea was associated with CHF exacerbation Patient has long history of smoking Continue DuoNeb Atrial fibrillation I increase the dose of metoprolol to 25 twice a day to control his tachycardia I will hold Coumadin for today due to supratherapeutic INR Laryngeal cancer. Followed by Ear, Nose and Throat (ENT). Chronic kidney disease. Continue calcitriol. I do not know his baseline renal function. Daily labs have been ordered. Hyperlipidemia. Continue atorvastatin 40 mg daily. History of gout. Continue allopurinol 100 mg daily VS,Fishbone, I+O VS, Fishbone, I+O Laboratory Tests 02/02/19 12:39 Red Blood Count 4.46, Mean Corpuscular Volume 96.6 H, Mean Corpuscular Hemoglobin 29.8, Mean Corpuscular Hemoglobin Concent 30.9 L, Red Cell Distribution Width 15.7 H, Neutrophils (%) (Auto) 82.8 H, Lymphocytes (%) (Auto) 8.0 L, Monocytes (%) (Auto) 7.0 H, Eosinophils (%) (Auto) 1.2, Basophils (%) (Auto) 0.6, Neutrophils # (Auto) 9.3 H, Lymphocytes # (Auto) 0.9 L, Monocytes # (Auto) 0.8, Eosinophils # (Auto) 0.1, Basophils # (Auto) 0.1 02/02/19 23:57 Calcium Level 9.3, Phosphorus Level 4.6, Aspartate Amino Transf (AST/SGOT) 13, Alanine Aminotransferase (ALT/SGPT) 26, Total Creatine Kinase 82, Alkaline Phosphatase 115, Total Bilirubin 0.5, Total Protein 6.4, Albumin 3.7 02/03/19 04:47 Red Blood Count 4.55, Mean Corpuscular Volume 101.5 H, Mean Corpuscular Hemoglo bin 30.1, Mean Corpuscular Hemoglobin Concent 29.7 L, Red Cell Distribution Width 15.4 H, Calcium Level 9.6 Vital Signs Date Time Temp Pulse Resp B/P (MAP) Pulse Ox O2 Delivery O2 Flow Rate FiO2 02/03/19 08:00 98.8 113 31 161/81 (107) 92 25 02/03/19 00:00 2.0 02/02/19 19:15 Nasal Cannula I&O- Last 24 Hours up to 6 AM 02/03/19 05:59 Intake Total 0 ml Output Total 880 ml Balance -880 ml BJ LUTZ DO Feb 03, 2019 12:35
[2019-02-03] MEDS: predniSONE 20 MG TAB PO SCH (13:03)
[2019-02-03] MEDS ORDERED: WARFARIN SOD 5 MG TAB PO SCH (13:15)
--- NOTE | 2019-02-03 13:25 | ECHO ---
DATE OF PROCEDURE: 02/02/2019 DATE OF : 12/06/2018 AGE: 83 GENDER: Male HEIGHT: 68 inches WEIGHT: 231 pounds BODY SURFACE AREA: 2.17 m2 INPATIENT: Currently in the emergency room. REFERRING PHYSICIAN: Dr. Herrera Palacios INDICATION: Dyspnea. MEASUREMENTS: 2-D Measurements: RV: 4.9 cm LV: 5.6 cm Septum: 1.2 cm Posterior wall: 1.2 cm Aortic root: 3.6 cm LA: 4.6 cm LVEF: 40% Doppler Measurements: AV: 1.1 m/s LVOT: 0.5 m/s LVOT: 2.2 cm MV: E: 107, Early mitral deceleration time: 190 ms E prime: 8.5, E/E prime ratio: 12.5 PCWP: 14.5 mmHg PV: 0.7 m/s Pulmonary artery acceleration time: 85 ms RVSP: 45-50 mmHg IVC: 2.3 cm COMMENTS: Underlying atrial fibrillation with controlled ventricular response. No intraventricular conduction disturbance. Technically difficult study in light of the patient's body habitus but diagnostically useful information was still obtained. M-mode and two-dimensional echocardiography was performed with pulsed, continuous wave, color flow and tissue Doppler studies. Mildly dilated left ventricle with borderline symmetrical hypertrophy and at least mild global hypokinesis. Moderately dilated left atrium. Unable to define LV diastolic function with his atrial fibrillation but current estimated mean left atrial pressure was only mildly increased. Moderately dilated right heart chambers with slight hypokinesis and Doppler evidence of at least moderate to moderately-severe pulmonary hypertension. Mildly dilated inferior vena cava with reduced respiratory collapse suggestive of an elevated central venous pressure. Aortic valvular sclerosis with adequate cusp separation but premature cusp closure in keeping with reduced forward stroke volume. Normal aortic root size. Slightly thickened mitral valvular apparatus with "low flow" appearance to leaflet excursion but no posterior systolic buckling. Mild mitral insufficiency. No apparent intracardiac mass or pericardial effusion.
[2019-02-03 13:51] LABS: INR 3.91; PROTHROMBIN TIME 38.4 SECONDS (11.8-14.0)
[2019-02-03 15:17] LABS: CALCIUM LEVEL 9.7 MG/DL (8.8-10.2); CREATININE FOR GFR 2.31 MG/DL (0.70-1.30); GLOMERULAR FILTRATION RATE 28.9 (>35); POTASSIUM SERUM 4.1 MEQ/L (3.5-5.1)
[2019-02-03] MEDS: ALLOPURINOL 100 MG TAB PO SCH (20:05)
--- NOTE | 2019-02-03 21:12 | ECGEPIP ---
[facility] Test Date: 2019-02-02 Pat Name: JEOVANY GALE Department: Room: [place] [address] Gender: Male Sander Hand: JOSE ALFREDO : 1935 Requested By: SANDEEP TENORIO HAND KISS SETTER Order Number: [id number] Reading MD: Kelvin Dumas Measurements Intervals [place] Rate: 99 P: [place]: 0 QRS: -55 QRSD: 125 T: 92 QT: 338 QTc: 434 Interpretive Statements Atrial fibrillation with controlled ventricular response Jevon beats seen Left anterior fascicular block Nonspecific ST-T wave abnormalities No significant change when compared to prior tracing of 02/02/2019 Electronically Signed on 02-03-2019 21:12:32 EDT by Kelvin Dumas
[2019-02-04] VITALS (8 sets, daily range): BP systolic 102–143; BP diastolic 52–95; O2SAT 92
[2019-02-04 05:35] LABS: HEMOGLOBIN 14.3 g/dl (13.5-17.5); MEAN CORPUSCULAR HEMOGLOBIN 29.9 pg (27.0-33.0); MEAN CORPUSCULAR HGB CONC 29.8 g/dl (32.0-36.5); MEAN CORPUSCULAR VOLUME 100.2 fl (80.0-96.0); PLATELET COUNT, AUTOMATED 231 10^3/uL (150-450); RED BLOOD COUNT 4.79 10^6/uL (4.30-6.10); WHITE BLOOD COUNT 15.4 10^3/uL (4.0-10.0)
[2019-02-04 05:38] LABS: CALCIUM LEVEL 9.4 MG/DL (8.8-10.2); CREATININE FOR GFR 3.05 MG/DL (0.70-1.30); POTASSIUM SERUM 4.1 MEQ/L (3.5-5.1)
[2019-02-04 05:44] LABS: INR 3.49; PROTHROMBIN TIME 35.1 SECONDS (11.8-14.0)
[2019-02-04] MEDS: IPRATROPIUM 0.5MG/ALBUTEROL 2.5MG INH SOL UD 3ML (DUONEB)(J7620) NEB SCH ×3 (07:57→19:30)
[2019-02-04] MEDS: CALCITRIOL 0.25 MCG CAP (S0169) PO SCH (08:54)
[2019-02-04] MEDS: predniSONE 20 MG TAB PO SCH (08:54)
[2019-02-04] MEDS: VITAMIN D 1,000 INTERNATIONAL UNITS TABLET PO SCH (08:55)
[2019-02-04] MEDS: ATORVASTATIN 10 MG TAB PO SCH (08:55)
[2019-02-04] MEDS: METOPROLOL TART 25 MG TABLET PO SCH ×3 (08:57→20:33)
--- NOTE | 2019-02-04 10:04 | IPNPDOC ---
Text Note Date of Service The patient was seen on 02/04/19. NOTE Subjective: Patient continues to complains of shortness of breath. No any acute events overnight. He was on BiPAP. His urine output overnight around 1500 mL. Objective: Physical Exam: Obese male sitting up Gen.: Patient alert and oriented, conversant Pulmonary: Diminished breath sounds in the bases bilaterally no wheezes Heart: S1-S2, tachycardia at rate 120 Abdomen: Nontender, moderately distended Neuro: Cranial nerves from 2 through 12 intact Extremities: 1+ pitting edema bilaterally DATE OF PROCEDURE: 02/02/2019 DATE OF : 12/06/2018 AGE: 83 GENDER: Male HEIGHT: 68 inches WEIGHT: 231 pounds BODY SURFACE AREA: 2.17 m2 INPATIENT: Currently in the emergency room. REFERRING PHYSICIAN: Dr. Herrera Palacios INDICATION: Dyspnea. MEASUREMENTS: 2-D Measurements: RV: 4.9 cm LV: 5.6 cm Septum: 1.2 cm Posterior wall: 1.2 cm Aortic root: 3.6 cm LA: 4.6 cm LVEF: 40% Doppler Measurements: AV: 1.1 m/s LVOT: 0.5 m/s LVOT: 2.2 cm MV: E: 107, Early mitral deceleration time: 190 ms E prime: 8.5, E/E prime ratio: 12.5 PCWP: 14.5 mmHg PV: 0.7 m/s Pulmonary artery acceleration time: 85 ms RVSP: 45-50 mmHg IVC: 2.3 cm COMMENTS: Underlying atrial fibrillation with controlled ventricular response. No intraventricular conduction disturbance. Technically difficult study in light of the patient's body habitus but diagnostically useful information was still obtained. M-mode and two-dimensional echocardiography was performed with pulsed, continuous wave, color flow and tissue Doppler studies. Mildly dilated left ventricle with borderline symmetrical hypertrophy and at least mild global hypokinesis. Moderately dilated left atrium. Unable to define LV diastolic function with his atrial fibrillation but current estimated mean left atrial pressure was only mildly increased. Moderately dilated right heart chambers with slight hypokinesis and Doppler evidence of at least moderate to moderately-severe pulmonary hypertension. Mildly dilated inferior vena cava with reduced respiratory collapse suggestive of an elevated central venous pressure. Aortic valvular sclerosis with adequate cusp separation but premature cusp closure in keeping with reduced forward stroke volume. Normal aortic root size. Slightly thickened mitral valvular apparatus with "low flow" appearance to leaflet excursion but no posterior systolic buckling. Mild mitral insufficiency. No apparent intracardiac mass or pericardial effusion. Assessment and plan: Patient is 83 years old male with past medical history of COPD, atrial fibri llation, CHF presented hospital with increased shortness of breath secondary to CHF exacerbation CHF exacerbation Patient developed significant dyspnea secondary to volume overload, patient was not compliant to his medical regimen. Patient continues to be volume overloaded. Patient developed good urine output on IV Lasix, patient 1500 mL overnight Echo was done and showed ejection fraction of 40% I's and O's Cardiac diet Acute on chronic hypercarbic respiratory failure Most likely secondary to CHF exacerbation. Patient doesn't have wheezes on the auscultation Continue inhalers Monitor blood gas BiPAP when necessary, settings 18/8 with a respiratory rate of 14 and FiO2 of 30%. Acute on chronic kidney injury He developed acute kidney injury with elevated creatinine level to 3.05 from 2.3 from yesterday. Lasix was on hold. We will repeat BMP at 3 pm Electrolytes imbalance Replaced COPD Most likely his dyspnea was associated with CHF exacerbation Patient has long history of smoking Continue DuoNeb Atrial fibrillation Patient continues to have tachycardia at rate 105 I increased the dose of metoprolol to 25 3 times a day to control his tachycardia Continue to monitor INR Laryngeal cancer. Followed by Ear, Nose and Throat (ENT). Hyperlipidemia. Continue atorvastatin 40 mg daily. History of gout. Continue allopurinol 100 mg daily VS,Fishbone, I+O VS, Fishbone, I+O Laboratory Tests 02/03/19 13:31 Calcium Level 9.7 02/04/19 04:59 Calcium Level 9.4, Red Blood Count 4.79, Mean Corpuscular Volume 100.2 H, Mean Corpuscular Hemoglobin 29.9, Mean Corpuscular Hemoglobin Concent 29.8 L, Red Cell Distribution Width 15.3 H Vital Signs Date Time Temp Pulse Resp B/P (MAP) Pulse Ox O2 Delivery O2 Flow Rate FiO2 02/04/19 08:57 123 105/66 02/04/19 08:00 97.3 18 92 2.0 02/04/19 07:58 Room Air 02/04/19 04:16 25 I&O- Last 24 Hours up to 6 AM 02/04/19 06:00 Intake Total 840 ml Output Total 660 ml Balance 180 ml [id number],BJ DO Feb 04, 2019 10:04
--- NOTE | 2019-02-04 12:46 | CCN ---
DATE OF SERVICE: 02/04/2019 The patient was seen and examined this morning during rounds. He reports that his shortness of breath and cough has been improving. He denies any chest pain. No fevers or chills. He continues to have some lower extremity edema, but does feel that has improved. The patient also noticed improvement in his hoarseness of his voice. Yesterday, the patient Lasix was on hold after his repeat chemistry showed increase in his creatinine. PHYSICAL EXAMINATION: Vitals: Temperature 97.8, pulse is 102, respirations 18, blood pressure 102/52, O2 sat 92% on room air. Ins 490 mL, outs 1410 mL, net negative 470 mL. General: The patient is an obese male sitting in bed. He is alert and oriented times three. Appears to be more awake today. He does have a hoarse voice, but it is stronger today and he is able to speak in complete sentences. He is not using any accessory muscles for respiration. HEENT: Normocephalic, atraumatic. Moist mucous membranes. Jugular venous distention (JVD) noted. Cardiovascular: Irregularly irregular. Normal S1 and S2. Faint systolic murmur auscultated. Lungs: Diminished breath sounds bilaterally with faint crackles at the bases. No wheezing or rhonchi noted. Abdomen is soft, obese, with a palpable firm mass in the right flank area. Nontender to palpation. Lower Extremities: There is +1 pitting edema bilaterally with some chronic venous stasis changes. LABORATORY DATA: WBC 15.4, hemoglobin 14.3 and platelets 231. Chemistry: Sodium is 139, potassium 4.1, chloride 100, bicarb is 31, BUN 63, creatinine is 3.05, glucose is 107. ASSESSMENT AND PLAN: The patient is an 83-year-old male with history of laryngeal cancer status post surgery, chronic obstructive pulmonary disease (COPD) not on home oxygen, coronary artery disease (CAD), congestive heart failure (CHF), atrial fibrillation on anticoagulation, history of a recurrent liposarcoma, with history previously of a partial hemicolectomy and nephrectomy, and chronic kidney disease (CKD) who presented with complaints of increased shortness of breath and lower extremity edema. He admits he had been noncompliant with his diuretics as an outpatient. The patient was admitted for decompensated congestive CHF. He was given diuretics; however, had not been significantly net negative. He was noted to have some increased difficulty breathing and an ABG had shown evidence of acute on chronic hypercarbic respiratory failure. The patient was transferred to the intensive care unit (ICU) and placed on a BiPap with improvement in his repeat ABGs. He was also started on steroids for possible COPD exacerbation as he was noted to have some increased wheezing and diminished air entry despite diuresis. Acute on chronic hypercarbic respiratory failure in the setting of CHF exacerbation and likely COPD exacerbation. The patient appears to have acute kidney injury (RASHAD) on CKD and his Lasix was on hold yesterday. Today, his creatinine continues to increase. The patient does appear to have some fluid overload still on exam with some lower extremity edema and crackles, although he is improving from previous. - Would continue to hold his Lasix for today and monitor a repeat chemistry in the afternoon. The patient's echo was done and it was a somewhat technically difficult study, but he was noted to have a mildly dilated left ventricle (LV) with at least mild global hypokinesis as well as a moderate dilated left atrium. His right heart chambers were also moderately dilated with slight hypokinesis and evidence of moderate to moderately severe pulmonary hypertension. The patient inferior vena cava (IVC) was also mildly dilated suggesting an increased central venous pressure. He did not have any significant valvular pathology noted and no pericardial effusion. The patient's pulmonary hypertension and right-sided heart failure is likely due to group II from left sided heart disease as he was noted to have a reduction in his left ventricle ejection fraction (LVEF). He also likely has a component of group III with chronic hypoxemic lung disease due to likely untreated obstructive sleep apnea (ALBERTO) and COPD. The patient could likely benefit from diuresis, however, with his worsening renal function he needs close adjustment in his diuretics. If the patient did have cardiorenal syndrome, would have expected his creatinine to improve with diuresis instead of increasing. With his right-sided heart failure, the patient would likely benefit from further control of his heart rate to help with filling and forward flow which may also help improve his renal function. The patient may also benefit from an inotrope as well to help with his diuresis. I suspect he is having decreased forward flow to his kidneys with his decompensated heart right-sided and mild left-sided heart failure. - Would continue the patient on BiPap at night for suspected ALBERTO/obesity hypoventilation syndrome (OHS). Will change him to tabletop BiPap with the settings of 18/8 and an FIO2 of 25%. - will repeat ABG in the AM - Did discuss with the patient that he will need sleep testing as an outpatient for evaluation for obstructive sleep apnea as he would likely benefit from outpatient pressure therapy. - Continue to monitor his ins and outs and renally dose medications. Avoid nephrotoxins if possible. - Continue with DuoNebs q.6 h and prednisone 40 mg daily for a 5-day course. DEEP VEIN THROMBOSIS (DVT) prophylaxis, on Coumadin. CODE STATUS: DO NOT RESUSCITATE/DO NOT INTUBATE (DNR/DNI). TOTAL CRITICAL CARE TIME: Not including procedures approximately 40 minutes. MTDD
[2019-02-04 15:32] LABS: CALCIUM LEVEL 9.6 MG/DL (8.8-10.2); CREATININE FOR GFR 3.25 MG/DL (0.70-1.30); GLOMERULAR FILTRATION RATE 19.5 (>35); POTASSIUM SERUM 4.1 MEQ/L (3.5-5.1)
[2019-02-04] MEDS: WARFARIN SOD 5 MG TAB PO SCH (17:24)
[2019-02-04] MEDS: ALLOPURINOL 100 MG TAB PO SCH (20:32)
[2019-02-05] VITALS (7 sets, daily range): BP systolic 100–132; BP diastolic 60–81
[2019-02-05] MEDS: IPRATROPIUM 0.5MG/ALBUTEROL 2.5MG INH SOL UD 3ML (DUONEB)(J7620) NEB SCH ×4 (02:00→19:24)
[2019-02-05 05:00] LABS: HEMOGLOBIN 12.4 g/dl (13.5-17.5); MEAN CORPUSCULAR HEMOGLOBIN 30.2 pg (27.0-33.0); MEAN CORPUSCULAR VOLUME 97.6 fl (80.0-96.0); PLATELET COUNT, AUTOMATED 193 10^3/uL (150-450); WHITE BLOOD COUNT 14.3 10^3/uL (4.0-10.0)
[2019-02-05 05:11] LABS: CREATININE FOR GFR 3.22 MG/DL (0.70-1.30); GLOMERULAR FILTRATION RATE 19.7 (>35)
[2019-02-05 05:23] LABS: INR 2.49; PROTHROMBIN TIME 26.8 SECONDS (11.8-14.0)
[2019-02-05 06:00] LABS: ABG BASE EXCESS 2.6 (-2.0-2.0); ABG HCO3 28.6 MEQ/L (22.0-26.0); ABG O2 SATURATION 96.1 % (95.0-99.0); ABG PARTIAL PRESSURE CO2 49.6 mmHg (35.0-45.0); ABG PARTIAL PRESSURE O2 84.8 mmHg (75.0-100.0); ABG STANDARD HCO3 26.8 MEQ/L (22.0-26.0); ABG TOTAL CO2 30.1 MEQ/L (23.0-31.0); ABG pH (ARTERIAL) 7.379 UNITS (7.350-7.450)
[2019-02-05] MEDS: predniSONE 20 MG TAB PO SCH (10:14)
[2019-02-05] MEDS: TAMSULOSIN 0.4 MG CAP PO SCH (10:14)
[2019-02-05] MEDS: FLUTICASONE PROP 0.05% NASAL SPRAY 16 GM (FLONASE) NARES SCH (10:15)
[2019-02-05] MEDS: CALCITRIOL 0.25 MCG CAP (S0169) PO SCH (10:15)
[2019-02-05] MEDS: VITAMIN D 1,000 INTERNATIONAL UNITS TABLET PO SCH (10:15)
[2019-02-05] MEDS: ATORVASTATIN 10 MG TAB PO SCH (10:16)
[2019-02-05] MEDS: FUROSEMIDE 20 MG/2 ML VIAL (J1940) IV SCH (10:16)
[2019-02-05] MEDS: METOPROLOL TART 25 MG TABLET PO SCH ×4 (10:17→20:36)
--- NOTE | 2019-02-05 12:55 | CCN ---
DATE: 02/05/2019 The patient was seen and examined this morning during rounds. Overall the patient reports that his shortness of breath and coughing has improved. He was weaned off of nasal cannula oxygen to room air this morning. He was changed to tabletop bilevel positive airway pressure (BiPAP) overnight, which he did use and tolerate well. He denies any chest pain. No fevers or chills. He continues to have some lower extremity edema but denies any abdominal pain. No nausea or vomiting. PHYSICAL EXAM: Vital signs: Temperature 98.6, pulse 83, respirations 20, blood pressure 120/68, oxygen saturation 91-92% on room air. Ins 630, out 365, positive 245 mL. General: The patient is an obese male, is sitting in bed, is alert and oriented times three. Does have a hoarse voice chronically but is able to speak in complete sentences with no accessory muscle use for respiration. HEENT is normocephalic, atraumatic. Moist mucous membranes. Neck is supple. Trachea is midline. No palpable adenopathy. Cardiovascular: Irregularly irregular. Normal S1, S2. Faint systolic murmur auscultated. Lungs: Improved breath sounds bilaterally with a few faint crackles at the bases, but no wheezing or rhonchi noted. Abdomen is soft, obese with a palpable firm mass in the right flank area nontender to palpation. Lower extremities: There is +1 pitting edema bilaterally with chronic venous stasis changes in the skin. LABS: WBC 14.3, hemoglobin 12.4, platelets are 193. Chemistry: Sodium is 141, potassium 4.0, chloride 101, bicarbonate 34, BUN 80, creatinine 3.22, glucose 115. ABG this morning, pH 7.379, pCO2 of 49.6, pO2 of 84.4. ASSESSMENT AND PLAN: The patient is an 83-year-old male with history laryngeal cancer status post surgery, chronic obstructive pulmonary disease (COPD) not on home oxygen, CAD, congestive heart failure (CHF), atrial fibrillation on anticoagulation, history of recurrent liposarcoma, history of previous partial hemicolectomy and nephrectomy, chronic kidney disease (CKD) who presented with increased shortness of breath and lower extremity edema. The patient was noncompliant with diuretics at home and he is admitted for decompensated CHF. The patient was started on diuretics. However, he continued to have increasing shortness of breath and his ABG had shown worsening acute on chronic hypercarbic respiratory failure. The patient was transferred to the intensive care unit (ICU) and placed on BiPAP with improvement. He was also started on steroids for possible COPD exacerbation with improvement as well. Acute on chronic hypercarbic respiratory failure in setting of CHF and likely COPD exacerbation. Patient likely has baseline obstructive sleep apnea (ALBERTO)/obesity hypoventilation syndrome (OHS) as well. - The patient had acute kidney injury (RASHAD) on CKD and his Lasix was on hold yesterday. His creatinine has trended down slightly and he was restarted on Lasix 20 mg by the primary team for gentle diuresis. - The patient's echo does have mild LV dysfunction and also RV hypokinesis with evidence of moderate to mildly-severe pulmonary hypertension and dilated inferior vena cava (IVC) suggesting increased central venous pressure (CVP). - The patient will need gentle diuresis with close monitoring of his renal function. He has previously expressed that if he were to have worsening renal failure that he would not want dialysis. - I would continue with increasing rate control to help improve filling and forward flow for his pulmonary hypertension and right-sided heart failure. - Continue with tabletop BiPAP at night for suspected ALBERTO/OHS. The patient was on settings of 18/8 with FiO2 of 25% and his ABG this morning shows appropriately compensated respiratory acidosis. - The patient will need followup with sleep testing as an outpatient for evaluation of ALBERTO. - Continue DuoNebs every 6 hours and prednisone 40 mg daily for a 5 day course. Deep venous thrombosis (DVT) prophylaxis. Code status: DO NOT RESUSCITATE/DO NOT INTUBATE. Total critical care time spent not including procedures approximately 35 minutes. Please do not hesitate to call if any further questions or concerns. MTDD
--- NOTE | 2019-02-05 13:05 | IPNPDOC ---
Text Note Date of Service The patient was seen on 02/05/19. NOTE Subjective: Patient 's shortness of breath markedly improved. In the morning he was off oxygen with good saturation No any acute events overnight. He was on BiPAP. Objective: Physical Exam: Obese male sitting up Gen.: Patient alert and oriented, conversant Pulmonary: Diminished breath sounds in the bases bilaterally no wheezes Heart: S1-S2, tachycardia at rate 120 Abdomen: Nontender, moderately distended Neuro: Cranial nerves from 2 through 12 intact Extremities: 1+ pitting edema bilaterally Patient is 83 years old male with past medical history of COPD, atrial fibri llation, CHF presented hospital with increased shortness of breath secondary to CHF exacerbation CHF exacerbation Patient developed significant dyspnea secondary to volume overload, patient was not compliant to his medical regimen. Patient continues to be volume overloaded. We held Lasix yesterday, kidney function stable with mild improvement. I restarted Lasix 20 mg IV Blood gas unremarkable and improved Echo was done and showed ejection fraction of 40% I's and O's Cardiac diet DC Bazan Acute on chronic hypercarbic respiratory failure Most likely secondary to CHF exacerbation. Patient doesn't have wheezes on the auscultation Continue inhalers Monitor blood gas BiPAP when necessary, settings 18/8 with a respiratory rate of 14 and FiO2 of 30%. Acute on chronic kidney injury He developed acute kidney injury with elevated creatinine level to 3.05 from 2.3. Today creatinine is 3.22 Electrolytes imbalance Replaced COPD Most likely his dyspnea was associated with CHF exacerbation Patient has long history of smoking Continue DuoNeb Atrial fibrillation Patient continues to have tachycardia at rate 105-110 I increased the dose of metoprolol to 25 4 times a day to control his tach ycardia Continue to monitor INR Laryngeal cancer. Followed by [facility] (ENT). Hyperlipidemia. Continue atorvastatin 40 mg daily. History of gout. Continue allopurinol 100 mg daily Postnasal drip I ordered steroid intranasally VS,Fishbone, I+O VS, Fishbone, I+O Laboratory Tests 02/04/19 14:58 Calcium Level 9.6 02/05/19 04:40 Calcium Level 9.0, Red Blood Count 4.10 L, Mean Corpuscular Volume 97.6 H, Mean Corpuscular Hemoglobin 30.2, Mean Corpuscular Hemoglobin Concent 31.0 L, Red Cell Distribution Width 15.4 H Vital Signs Date Time Temp Pulse Resp B/P (MAP) Pulse Ox O2 Delivery O2 Flow Rate FiO2 02/05/19 10:17 117 140/60 02/05/19 08:00 98.6 20 93 02/05/19 05:54 25 02/04/19 08:00 2.0 02/04/19 07:58 Room Air I&O- Last 24 Hours up to 6 AM 02/05/19 05:59 Intake Total 630 ml Output Total 495 ml Balance 135 ml BJ LUTZ DO Feb 05, 2019 13:05
[2019-02-05] MEDS: WARFARIN SOD 5 MG TAB PO SCH (17:44)
[2019-02-05] MEDS: ALLOPURINOL 100 MG TAB PO SCH (20:37)
[2019-02-06] VITALS (7 sets, daily range): BP systolic 102–146; BP diastolic 65–86
[2019-02-06] MEDS: IPRATROPIUM 0.5MG/ALBUTEROL 2.5MG INH SOL UD 3ML (DUONEB)(J7620) NEB SCH ×4 (02:00→19:51)
[2019-02-06 05:48] LABS: HEMOGLOBIN 12.4 g/dl (13.5-17.5); MEAN CORPUSCULAR VOLUME 96.9 fl (80.0-96.0); PLATELET COUNT, AUTOMATED 189 10^3/uL (150-450); RED BLOOD COUNT 4.13 10^6/uL (4.30-6.10); WHITE BLOOD COUNT 11.3 10^3/uL (4.0-10.0)
[2019-02-06 05:58] LABS: INR 1.94; PROTHROMBIN TIME 21.9 SECONDS (11.8-14.0)
[2019-02-06 06:10] LABS: CREATININE FOR GFR 3.13 MG/DL (0.70-1.30); GLOMERULAR FILTRATION RATE 20.4 (>35); POTASSIUM SERUM 4.1 MEQ/L (3.5-5.1)
[2019-02-06] MEDS: FLUTICASONE PROP 0.05% NASAL SPRAY 16 GM (FLONASE) NARES SCH (09:43)
[2019-02-06] MEDS: predniSONE 20 MG TAB PO SCH (09:44)
[2019-02-06] MEDS: TAMSULOSIN 0.4 MG CAP PO SCH (09:44)
[2019-02-06] MEDS: FUROSEMIDE 20 MG/2 ML VIAL (J1940) IV SCH (09:44)
[2019-02-06] MEDS: METOPROLOL TART 25 MG TABLET PO SCH ×4 (09:45→20:52)
[2019-02-06] MEDS: VITAMIN D 1,000 INTERNATIONAL UNITS TABLET PO SCH (09:45)
[2019-02-06] MEDS: ATORVASTATIN 10 MG TAB PO SCH (09:45)
[2019-02-06] MEDS: CALCITRIOL 0.25 MCG CAP (S0169) PO SCH (09:45)
--- NOTE | 2019-02-06 10:16 | IPNPDOC ---
Text Note Date of Service The patient was seen on 02/06/19. NOTE Subjective: No any acute events overnight. Patient stated that his breathing improved. No any acute events overnight. He was on BiPAP. Objective: Physical Exam: Obese male sitting up Gen.: Patient alert and oriented, conversant Pulmonary: Diminished breath sounds in the bases bilaterally no wheezes Heart: S1-S2, tachycardia at rate 120 Abdomen: Nontender, moderately distended Neuro: Cranial nerves from 2 through 12 intact Extremities: 1+ pitting edema bilaterally Patient is 83 years old male with past medical history of COPD, atrial fibrillation, CHF presented hospital with increased shortness of breath secondary to CHF exacerbation CHF exacerbation Patient developed significant dyspnea secondary to volume overload, patient was not compliant to his medical regimen. Patient continues to be volume overloaded. We held Lasix due to AKA, kidney function stable with mild improvement, his creatinine is 3.1. I continue gentle diuresis with Lasix 20 mg IV Echo was done and showed ejection fraction of 40% I's and O's Cardiac diet DC Bazan Acute on chronic hypercarbic respiratory failure Resolved Most likely secondary to CHF exacerbation. Patient doesn't have wheezes on the auscultation Continue inhalers Monitor blood gas BiPAP when necessary, settings 18/8 with a respiratory rate of 14 and FiO2 of 30%. Acute on chronic kidney injury He developed acute kidney injury with elevated creatinine level to 3.05 from 2.3. Today creatinine is 3.1, mild improvement, still not in his baseline Electrolytes imbalance Replaced COPD Most likely his dyspnea was associated with CHF exacerbation Patient has long history of smoking Continue DuoNeb Atrial fibrillation Heart rate is under control I increased the dose of metoprolol to 25 4 times a day to control his tachycardia Continue to monitor INR Laryngeal cancer. Followed by [facility] (ENT). Hyperlipidemia. Continue atorvastatin 40 mg daily. History of gout. Continue allopurinol 100 mg daily Postnasal drip I ordered steroid intranasally VS,Fishbone, I+O VS, Fishbone, I+O Laboratory Tests 02/06/19 05:22 Red Blood Count 4.13 L, Mean Corpuscular Volume 96.9 H, Mean Corpuscular Hemoglobin 30.0, Mean Corpuscular Hemoglobin Concent 31.0 L, Red Cell Distribution Width 15.4 H, Calcium Level 9.0 Vital Signs Date Time Temp Pulse Resp B/P (MAP) Pulse Ox O2 Delivery O2 Flow Rate FiO2 02/06/19 09:45 74 146/76 02/06/19 08:00 96.4 22 96 02/05/19 05:54 25 02/04/19 08:00 2.0 02/04/19 07:58 Room Air I&O- Last 24 Hours up to 6 AM 02/06/19 05:59 Intake Total 900 ml Output Total 435 ml Balance 465 ml BJ LUTZ DO Feb 06, 2019 10:16
[2019-02-06] MEDS: WARFARIN SOD 5 MG TAB PO SCH (17:43)
[2019-02-06] MEDS: ALLOPURINOL 100 MG TAB PO SCH (20:52)
[2019-02-07] MEDS: IPRATROPIUM 0.5MG/ALBUTEROL 2.5MG INH SOL UD 3ML (DUONEB)(J7620) NEB SCH ×3 (02:00→13:08)
[2019-02-07 04:00] VITALS: BP 136/81
[2019-02-07 06:15] LABS: HEMATOCRIT 38.4 % (42.0-52.0); HEMOGLOBIN 12.1 g/dl (13.5-17.5); MEAN CORPUSCULAR HEMOGLOBIN 30.1 pg (27.0-33.0); MEAN CORPUSCULAR HGB CONC 31.5 g/dl (32.0-36.5); MEAN CORPUSCULAR VOLUME 95.5 fl (80.0-96.0); PLATELET COUNT, AUTOMATED 200 10^3/uL (150-450); RED BLOOD COUNT 4.02 10^6/uL (4.30-6.10); WHITE BLOOD COUNT 11.5 10^3/uL (4.0-10.0)
[2019-02-07 06:30] LABS: INR 1.94; PROTHROMBIN TIME 21.9 SECONDS (11.8-14.0)
[2019-02-07 06:38] LABS: CALCIUM LEVEL 9.4 MG/DL (8.8-10.2); CREATININE FOR GFR 2.76 MG/DL (0.70-1.30); GLOMERULAR FILTRATION RATE 23.5 (>35); POTASSIUM SERUM 4.4 MEQ/L (3.5-5.1)
[2019-02-07 08:00] VITALS: BP 138/68
[2019-02-07] MEDS: CALCITRIOL 0.25 MCG CAP (S0169) PO SCH (08:31)
[2019-02-07] MEDS: predniSONE 20 MG TAB PO SCH (08:31)
[2019-02-07 08:32] VITALS: BP 136/81
[2019-02-07] MEDS: ATORVASTATIN 10 MG TAB PO SCH (08:32)
[2019-02-07] MEDS: FUROSEMIDE 20 MG/2 ML VIAL (J1940) IV SCH (08:32)
[2019-02-07] MEDS: TAMSULOSIN 0.4 MG CAP PO SCH (08:32)
[2019-02-07] MEDS: VITAMIN D 1,000 INTERNATIONAL UNITS TABLET PO SCH (08:32)
[2019-02-07] MEDS: METOPROLOL TART 25 MG TABLET PO SCH ×2 (08:32→13:00)
[2019-02-07] MEDS: FLUTICASONE PROP 0.05% NASAL SPRAY 16 GM (FLONASE) NARES SCH (08:33)
--- NOTE | 2019-02-07 12:58 | DS.PDOC ---
Discharge Summary General Date of Admission Feb 02, 2019 at 16:01 Date of Discharge 02/07/19 Attending Physician: JASIEL PARKER MD Discharge Summary PROCEDURES PERFORMED DURING STAY: None. ADMITTING DIAGNOSES: 1. exacerbation of CHF. DISCHARGE DIAGNOSES: 1. Decompensated heart failure with a reduced ejection fraction, acute on chronic hypercarbic respiratory failure COPD, atrial fibrillation, acute on chronic kidney disease, electrolyte abnormalities, laryngeal cancer, hyperlipidemia, gout. COMPLICATIONS/CHIEF COMPLAINT: CHF. HISTORY OF PRESENT ILLNESS: Jet Weems is an 83-year-old patient of Dr. Nikki Laura who has had increasing lower extremity edema, shortness of breath, cough over several days. He presents to the emergency room with decompensated congestive heart failure. He is being admitted for further treatment. He has a history, he says, of "30 years of congestive heart failure," but he does not have an identified community development planner. . HOSPITAL COURSE: Patient is 83 years old male with past medical history of COPD, atrial fibrillation, CHF presented hospital with increased shortness of breath secondary to CHF exacerbation CHF exacerbation Patient developed significant dyspnea secondary to volume overload, patient was not compliant to his medical regimen. Patient continues to be volume overloaded. We held Lasix due to AKA, kidney function stable with mild improvement, his creatinine is 3.1. Gentle diuresis was continued with Lasix 20 mg IV with good response and has been switched back to by mouth Lasix 80 mg by mouth daily. On discharge Echo was done and showed ejection fraction of 40% I's and O's were monitored during the admission Cardiac diet DC Bazan before discharge Acute on chronic hypercarbic respiratory failure Resolved Most likely secondary to CHF exacerbation. Patient doesn't have wheezes on the auscultation Continue inhalers Monitor blood gas BiPAP when necessary, settings 18/8 with a respiratory rate of 14 and FiO2 of 30%. Acute on chronic kidney injury He developed acute kidney injury with elevated creatinine level to 3.05 from 2.3. Today creatinine is 3.1, mild improvement, still not in his baseline Electrolytes imbalance Replaced COPD Most likely his dyspnea was associated with CHF exacerbation Patient has long history of smoking DuoNeb was continued while during inpatient Atrial fibrillation Heart rate is under control I increased the dose of metoprolol to 25 4 times a day to control his tachycardia INR is therapeutic. Monitor as an outpatient Laryngeal cancer. Followed by [facility] (ENT). Hyperlipidemia. Continue atorvastatin 40 mg daily. History of gout. Continue allopurinol 100 mg daily. DISCHARGE MEDICATIONS: Please see below. ALLERGIES: Please see below. PHYSICAL EXAMINATION ON DISCHARGE: VITAL SIGNS: Please see below. GENERAL: Within normal limits HEENT: PERRLA, trochlear muscles intact NECK: Supple, no JVD, no lymphadenopathy CARDIOVASCULAR EXAMINATION: S1, S2, regular RESPIRATORY EXAMINATION: [Clear to A&P ABDOMINAL EXAMINATION: [Benign EXTREMITIES: No clubbing, cyanosis, edema SKIN: Within normal limits NEUROLOGICAL EXAMINATION: . No focal motor sensory deficit PSYCHIATRIC EXAMINATION: Normal LABORATORY DATA: Please see below. IMAGING: Chest x-ray report:Impression: Chronic cardiomegaly. Chronic mild interstitial coarsening. No acute findings. PROGNOSIS: Good ACTIVITY: As tolerated. DIET: Cardiac diet DISCHARGE PLAN: Home with home care DISPOSITION: . Home DISCHARGE INSTRUCTIONS: 1. As per discharge instructions. ITEMS TO FOLLOWUP ON ON OUTPATIENT: 1. Follow with PCP/community development planner in one week. DISCHARGE CONDITION: Stable. TIME SPENT ON DISCHARGE: 45 minutes. Vital Signs/I&Os Vital Signs Date Time Temp Pulse Resp B/P (MAP) Pulse Ox O2 Delivery O2 Flow Rate FiO2 02/07/19 08:32 82 136/81 02/07/19 08:00 97.3 18 93 02/05/19 05:54 25 02/04/19 08:00 2.0 02/04/19 07:58 Room Air I&O- Last 24 Hours up to 6 AM 02/07/19 06:00 Intake Total 530 ml Output Total 1275 ml Balance -745 ml Laboratory Data Labs 24H Laboratory Tests 2 02/07/19 05:30: Nucleated Red Blood Cells % (auto) 0.0, Prothrombin Time 21.9H, Prothromb Time International Ratio 1.94, Anion Gap 4L, Glomerular Filtration Rate 23.5L, Blood Urea Nitrogen 86H, Creatinine 2.76H, Sodium Level 142, Potassium Level 4.4, Chloride Level 103, Carbon Dioxide Level 35H, Calcium Level 9.4 CBC/BMP Laboratory Tests 02/07/19 05:30 Red Blood Count 4.02 L, Mean Corpuscular Volume 95.5, Mean Corpuscular Hemoglobin 30.1, Mean Corpuscular Hemoglobin Concent 31.5 L, Red Cell Distribution Width 15.4 H, Calcium Level 9.4 Microbiology Microbiology 02/02/19 Blood Culture - Preliminary, Resulted No Growth after 72 hours. All specime... 02/02/19 Blood Culture - Final, Complete NO GROWTH AFTER 5 DAYS Discharge Medications Scheduled Allopurinol (Allopurinol) 100 Mg Tab, 200 MG PO DAILY, (Reported) Atorvastatin Calcium (Atorvastatin Calcium) 10 Mg Tab, 10 MG PO DAILY, (Reported) Calcitriol (Calcitriol) 0.25 Mcg Capsule, 0.25 MCG PO DAILY, (Reported) Cholecalciferol (Vitamin D3) (Vitamin D3) 2,000 Unit Capsule, 2,000 UNIT PO DAILY, (Reported) Furosemide (Furosemide) 80 Mg Tab, 80 MG PO DAILY, (Reported) Metoprolol Tartrate (Metoprolol Tartrate) 25 Mg Tablet, 25 MG PO DAILY, (Reported) Multivitamin (Multi-Vitamin Daily) 1 Tab Tab, 1 TAB PO DAILY, (Reported) Omeprazole (Omeprazole) 40 Mg Capsule.dr, 1 CAP PO DAILY, (Reported) Warfarin Sodium (Warfarin Sodium) 5 Mg Tablet, 5 MG PO 5XW, (Reported) SUN/TUES/WED/FRI/SAT Warfarin Sodium (Warfarin Sodium) 5 Mg Tablet, 7.5 MG PO 2XW, (Reported) MON/THURS Allergies Coded Allergies: No Known Allergies (Unverified , 09/07/18) JASIEL PARKER MD Feb 07, 2019 12:58
[2019-02-07] MEDS ORDERED: FUROSEMIDE 20 MG TAB PO SCH (17:00)
== END 2019-02-07 13:38 | disposition home or self-care (01) | DRG 291 ==
LOC: M ED 12:04 → M ED INP 16:01 → M PCU 19:45 → M ICU 02-03 01:41 → M PCU 02-05 13:53
PROVIDERS: ADMIT Family Medicine; ATTEND Internal Medicine
DX: I13.0 Hypertensive heart and chronic kidney disease with heart failure and stage 1 through stage 4 chronic kidney disease, or unspecified chronic kidney disease (principal); J96.22 Acute and chronic respiratory failure with hypercapnia; I50.33 Acute on chronic diastolic (congestive) heart failure; E87.2 Acidosis; C49.4 Malignant neoplasm of connective and soft tissue of abdomen; N17.9 Acute kidney failure, unspecified; E66.2 Morbid (severe) obesity with alveolar hypoventilation; I48.91 Unspecified atrial fibrillation; J44.9 Chronic obstructive pulmonary disease, unspecified; I25.10 Atherosclerotic heart disease of native coronary artery without angina pectoris; N18.3 Chronic kidney disease, stage 3 (moderate); Z66 Do not resuscitate; E78.5 Hyperlipidemia, unspecified; M10.9 Gout, unspecified; I71.4 Abdominal aortic aneurysm, without rupture; Z85.828 Personal history of other malignant neoplasm of skin; Z90.49 Acquired absence of other specified parts of digestive tract; Z98.49 Cataract extraction status, unspecified eye; Z85.21 Personal history of malignant neoplasm of larynx; Z87.891 Personal history of nicotine dependence; Z79.01 Long term (current) use of anticoagulants; Z68.34 Body mass index [BMI] 34.0-34.9, adult

== ENCOUNTER 2019-02-21 12:25 | Inpatient (IN) | payer MEDICARE, BC, OTHER ==
[~2019-02-21] VITALS: Ht 172.7 cm; Wt 99.9 kg
[~2019-02-21 12:25] MED LIST changes: +CALC1CAP31 PO; +D200CAP3 PO; +METO1TAB87 PO; +OMEP-221 PO; +WARF-23 PO
[2019-02-21] MEDS ORDERED: SPIR-10 PO (12:36)
[2019-02-21 13:47] LABS: BASO # 0.1 10^3/uL (0.0-0.2); BASO % 0.7 % (0.0-1.0); EOS # 0.2 10^3/uL (0.0-0.5); EOS % 1.5 % (0.0-3.0); HEMOGLOBIN 13.7 g/dl (13.5-17.5); LYMPH # 0.9 10^3/uL (1.5-5.0); LYMPH % 7.3 % (24.0-44.0); MEAN CORPUSCULAR HEMOGLOBIN 30.3 pg (27.0-33.0); MEAN CORPUSCULAR HGB CONC 31.1 g/dl (32.0-36.5); MEAN CORPUSCULAR VOLUME 97.3 fl (80.0-96.0); MONO # 0.7 10^3/uL (0.0-0.8); MONO % 5.4 % (0.0-5.0); NEUTROPHILS # 10.7 10^3/uL (1.5-8.5); NEUTROPHILS % 84.8 % (36.0-66.0); PLATELET COUNT, AUTOMATED 233 10^3/uL (150-450); RED BLOOD COUNT 4.52 10^6/uL (4.30-6.10); WHITE BLOOD COUNT 12.6 10^3/uL (4.0-10.0)
[2019-02-21 14:14] LABS: ALBUMIN 3.5 GM/DL (3.2-5.2); ALT/SGPT 24 U/L (12-78); BILIRUBIN,DIRECT < 0.1 MG/DL (0.0-0.2); BILIRUBIN,TOTAL 0.5 MG/DL (0.2-1.0); BLOOD UREA NITROGEN 55 MG/DL (7-18); CALCIUM LEVEL 9.6 MG/DL (8.8-10.2); CARBON DIOXIDE LEVEL 37 MEQ/L (21-32); CHLORIDE LEVEL 99 MEQ/L (98-107); CK-MB VALUE MASS 2.4 NG/ML (<3.6); CPK CREATINE PHOSPHOKINASE 106 U/L (39-308); CREATININE FOR GFR 2.71 MG/DL (0.70-1.30); GLUCOSE, FASTING 109 MG/DL (70-100); MB/CK RELATIVE INDEX 2.26 (< OR =4); NT-PRO BNP 2299 PG/ML (<450); POTASSIUM SERUM 4.6 MEQ/L (3.5-5.1); SODIUM LEVEL 139 MEQ/L (136-145); TOTAL PROTEIN 7.3 GM/DL (6.4-8.2); TROPONIN I < 0.02 NG/ML (< 0.10)
[2019-02-21] MEDS ORDERED: IPRATROPIUM 0.5MG/ALBUTEROL 2.5MG INH SOL UD 3ML (DUONEB)(J7620) NEB ONE (14:15)
--- NOTE | 2019-02-21 14:56 | REP ---
CHEST X-RAY: TWO VIEWS. HISTORY: Dyspnea and cough. COMPARISON STUDY: February 02, 2019 FINDINGS: Monitoring electrodes are seen. Mild cardiomegaly is observed. The cardiothoracic ratio measures 54.7%. Pulmonary vasculature is not increased. Pleural angles are sharp. There are degenerative changes in the thoracic spine. IMPRESSION: Moderate cardiomegaly. No evidence of pleural effusion or pulmonary edema. No focal infiltrate. Electronically Signed by Christopher Diaz MD 02/21/2019 06:47 P
[2019-02-21] MEDS ORDERED: FUROSEMIDE 100 MG/10 ML VIAL (J1940) IV ONE (16:15)
[2019-02-21] MEDS ORDERED: dexameTHASONE 20 MG/5 ML VIAL (J1100) IV ONE (16:15)
[2019-02-21] MEDS ORDERED: ALBUTEROL SULFATE 2.5 MG/0.5 ML INH NEB SOLN INH ONE (16:15)
[2019-02-21] MEDS ORDERED: MOM 30ML SUSPENSION UDC PO PRN (20:00)
[2019-02-21] MEDS ORDERED: MAALOX 30 ML SUSP *UDC PO PRN (20:00)
[2019-02-21] MEDS ORDERED: ACETAMINOPHEN TAB 650MG DOSE (2X325MG) PO PRN (20:00)
[2019-02-21] MEDS ORDERED: HEPARIN SOD (PORCINE) 5000 UNITS/ML VIAL SC SCH (20:00)
[2019-02-21] MEDS ORDERED: IPRATROPIUM 0.5MG/ALBUTEROL 2.5MG INH SOL UD 3ML (DUONEB)(J7620) NEB PRN (20:15)
--- NOTE | 2019-02-21 20:20 | HPEPDOC ---
General Date of Admission 02/21/19 Date of Service: Feb 21, 2019 Primary Care Physician: RIGO ORDAZ DO Chief Complaint The patient is a 83-year-old male admitted with a reason for visit of SOB. Source: Patient, Family Exam Limitations: No limitations Timing/Duration: Other Severity: Moderate (last 2 days) Associated Symptoms: Shortness of breath History of Present Illness This is 83 years old white male with past medical history of A. fib, COPD, carcinoma of larynx abdominal aortic aneurysm, history of coronary artery disease, hypertension, CK D, stage III like advanced surgical hospital site, presented with chief complaint of increasing shortness of breath since last 2 days, as per patient, he usually is shortness of breath but is getting worse. Denies any chest pain, cough, phlegm, nausea, vomiting, abdominal pain, headache, fever, etc. Patient also signed the DNR, DNI and wants a limited medical intervention but he is not willing to sign comfort care at the present time Home Medications Scheduled Allopurinol (Allopurinol) 100 Mg Tab, 200 MG PO QHS, (Reported) Atorvastatin Calcium (Atorvastatin Calcium) 10 Mg Tab, 10 MG PO DAILY, (Reported) Calcitriol (Calcitriol) 0.25 Mcg Capsule, 0.25 MCG PO DAILY, (Reported) Furosemide (Furosemide) 80 Mg Tab, 80 MG PO DAILY, (Reported) Metoprolol Tartrate (Metoprolol Tartrate) 25 Mg Tablet, 25 MG PO DAILY, (Reported) Multivitamin (Multi-Vitamin Daily) 1 Tab Tab, 1 TAB PO DAILY, (Reported) Omeprazole (Omeprazole) 40 Mg Capsule.dr, 1 CAP PO DAILY, (Reported) Spironolactone (Spironolactone) 25 Mg Tablet, 12.5 MG PO DAILY, (Reported) Warfarin Sodium (Warfarin Sodium) 5 Mg Tablet, 5 MG PO 5XW, (Reported) SUN/TU/WED/FRI/SAT Warfarin Sodium (Warfarin Sodium) 5 Mg Tablet, 7.5 MG PO 2XW, (Reported) MON/THURS Allergies Coded Allergies: No Known Allergies (Unverified , 09/07/18) Past Medical History Medical History , Atrial fibrillation, chronic COPD, CLL, larynx, abdominal aortic aneurysm, CAD, ischemic heart disease, hypertension, CK D, stage III liposarcoma of abdomen Surgical History Basal cell carcinoma removal and a fistula surgery see her larynx surgery, laser surgery of laryngeal carcinoma removal of 20, KG is a liposarcoma right side removal of right kidney partial colectomy with appendectomy, incisional hernia repair, cataract extraction, blepharoplasty and colonoscopy Family History Significant Family History: Other (. Mother had colon cancer) Social History * Smoker: former Smoker, quit greater than 1 year Alcohol: Denies Drugs: denies A-FIB/CHADSVASC A-FIB History Current/History of A-Fib/PAF?: Yes Current PO Anticoag Therapy: Yes Review of Systems Constitutional: Denies: Chills, Fever, Malaise, Night Sweats, Weakness, Fatigue, Weight Loss, Lethargy, Other Eyes: Denies: Pain, Vision change, Conjunctivae inflammation, Eyelid inflammation, Redness, Other ENT: Denies: Head Aches, Ear Pain, Dysphagia, Sinus Congestion, Post Nasal Drip, Sore Throat, Epistaxis, Other Symptoms Pulmonary: Reports: Dyspnea Cardiovascular: Denies: Chest Pain, Palpitations, Orthopnea, Paroxysmal Noc. Dyspnea, Edema, Lt Headedness, Other Symptoms Genitourinary: Denies: Dysuria, Frequency, Incontinence, Hematuria, Retention, Other Symptoms Hematologic: Denies: Bruising, Bleeding Excessively, Petecchia, Purpura, Enlarg ed Lymph Nodes, Other Hematologic Endocrine: Denies: Polydipsia, Polyphagia, Polyuria, Heat Intolerance, Cold Intolerance, Other Endocrine Sx Musculoskeletal: Denies: Neck Pain, Back Pain, Shoulder Pain, Arm Pain, Hand Pain, Leg Pain, Foot Pain, Joint Pain, Muscle Pain, Spasms, Other Symptoms Neurological: Denies: Weakness, Numbness, Incoordination, Change in speech, Confusion, Seizures, Other Symptoms Psych: Denies: Mood Normal, Anxiety, Depression, Memory Issues, Thoughts of Self Harm, Anger, Thoughts of Harming Other, Other Psych Physical Examination General Exam: Positive: Alert, Cooperative Eye Exam: Positive: PERRLA, Conjunctiva & lids normal ENT Exam: Positive: Atraumatic, Mucous membr. moist/pink Neck Exam: Positive: Supple Chest Exam: Positive: Diminished (. Diminished breath sounds bilaterally but no wheezing, rales or rhonchi) Heart Exam: Positive: Rate Normal, Irregular Rhythm, Normal S1, Normal S2 Telemetry: Positive: Atrial fibrillation Abdomen Exam: Positive: Normal bowel sounds, Soft Extremity Exam: Positive: Normal pulses Skin Exam: Positive: Nl turgor and temperature Neuro Exam: Positive: Strength at 5/5 X4 ext, Sensation Intact Psych Exam: Positive: Mental status NL, Mood NL, Oriented x 3 Vital Signs Vital Signs Date Time Temp Pulse Resp B/P (MAP) Pulse Ox O2 Delivery O2 Flow Rate FiO2 02/21/19 18:30 140 22 202/126 (151) 02/21/19 18:15 88 02/21/19 13:00 Nasal Cannula 2.0 02/21/19 12:50 87 02/21/19 12:25 98.2 Laboratory Data Labs 24H Laboratory Tests 2 02/21/19 13:27: Immature Granulocyte % (Auto) 0.3, White Blood Count 12.6H, Red Blood Count 4 .52, Hemoglobin 13.7, Hematocrit 44.0, Mean Corpuscular Volume 97.3H, Mean Corpuscular Hemoglobin 30.3, Mean Corpuscular Hemoglobin Concent 31.1L, Red Cell Distribution Width 15.4H, Platelet Count 233, Neutrophils (%) (Auto) 84.8H, Lymphocytes (%) (Auto) 7.3L, Monocytes (%) (Auto) 5.4H, Eosinophils (%) (Auto) 1.5, Basophils (%) (Auto) 0.7, Neutrophils # (Auto) 10.7H, Lymphocytes # (Auto) 0.9L, Monocytes # (Auto) 0.7, Eosinophils # (Auto) 0.2, Basophils # (Auto) 0.1, Nucleated Red Blood Cells % (auto) 0.0, Anion Gap 3L, Glomerular Filtration Rate 24.0L, Lactic Acid Level 0.9, Calcium Level 9.6, Aspartate Amino Transf (AST/SGOT) 17, Alanine Aminotransferase (ALT/SGPT) 24, Alkaline Phosphatase 114, Total Bilirubin 0.5, Direct Bilirubin < 0.1, Total Creatine Kinase 106, Creatine Kinase MB 2.4, Creatine Kinase MB Relative Index 2.26, Troponin I < 0.02, SW-Smx-R-Type Natriuretic Peptide 2299H, Total Protein 7.3, Albumin 3.5, Albumin/Globulin Ratio 0.92L CBC/BMP Laboratory Tests 02/21/19 13:27 Red Blood Count 4.52, Mean Corpuscular Volume 97.3 H, Mean Corpuscular Hemo globin 30.3, Mean Corpuscular Hemoglobin Concent 31.1 L, Red Cell Distribution Width 15.4 H, Neutrophils (%) (Auto) 84.8 H, Lymphocytes (%) (Auto) 7.3 L, Monocytes (%) (Auto) 5.4 H, Eosinophils (%) (Auto) 1.5, Basophils (%) (Auto) 0.7, Neutrophils # (Auto) 10.7 H, Lymphocytes # (Auto) 0.9 L, Monocytes # (Auto) 0.7, Eosinophils # (Auto) 0.2, Basophils # (Auto) 0.1 Microbiology Microbiology 02/21/19 Gram Stain, Received Pending 02/21/19 Sputum Culture, Received Pending 02/21/19 Blood Culture, Received Pending 02/21/19 Blood Culture, Received Pending Problems (1) COPD exacerbation Status: Acute Problem Text: 83 years old white male with past medical history of A. fib, COPD, CLL, drinks abdominal aortic aneurysm, CAD, ischemic heart disease, hypertension, security stage III, presented with increasing shortness of breath. On clinical exam. Breath sounds are diminished bilaterally with no rales, rhonchi or wheezing. Today does not show pulmonary congestion or infiltrate. First troponin is negative. His BMP is elevated and electrolytes are within normal range. Patient received IV steroids and nebulizer treatment in ED with good response Admit patient to PCU with possible exacerbation of COPD and questionable acute on chronic diastolic CHF Telemetry monitoring Oxygen support Solu-Medrol 60 mg IV every 8 hours DuoNeb every 6 hours and every 2 hours when necessary Oxygen support Continue all home meds DVT prophylaxis, patient is already on Coumadin State. INR was ordered Activity as tolerated Diet 2 g sodium (2) CHF (congestive heart failure) Status: Chronic Problem Text: From clinical exam. I doubt patient has exacerbation of CHF, S2, etc. as does not show pulmonary vascular congestion, but troponin is elevated. Hence, patient got 1 dose of IV Lasix in ED. Patient had echocardiogram done in January 2019 which showed: Mildly dilated left ventricle with borderline symmetrical hypertrophy and at least mild global hypokinesis. Moderately dilated left atrium. Unable to define LV diastolic function with his atrial fibrillation but current estimated mean left atrial pressure was only mildly increased. Moderately dilated right heart chambers with slight hypokinesis and Doppler evidence of at least moderate to moderately-severe pulmonary hypertension. Mildly dilated inferior vena cava with reduced respiratory collapse suggestive of an elevated central venous pressure. Aortic valvular sclerosis with adequate cusp separation but premature cusp closure in keeping with reduced forward stroke volume. Normal aortic root size. Slightly thickened mitral valvular apparatus with "low flow" appearance to leaflet excursion but no posterior systolic buckling. Mild mitral insufficiency Oxygen support Continue home Lasix order I/O First troponin is negative. Follow the serial troponins BNP in a.m. Follow clinical response to Lasix. (3) A-fib Status: Chronic Problem Text: Rate is under control Continue home meds Continue Coumadin as per home. Orders Stated INR has been ordered (4) HTN (hypertension) Status: Chronic Problem Text: Continue home meds (5) CKD (chronic kidney disease) stage 3, GFR 30-59 ml/min Problem Text: Monitor BUN/creatinine Continue home meds Plan / VTE VTE Prophylaxis Ordered?: Yes JASIEL PARKER MD Feb 21, 2019 20:20
[2019-02-21 20:29] LABS: INR 3.33; PROTHROMBIN TIME 33.8 SECONDS (11.8-14.0)
[2019-02-21] MEDS ORDERED: PILL CUTTER 1 EACH XX PRN (20:45)
--- NOTE | 2019-02-21 21:31 | ECGEPIP ---
[facility] - ED Test Date: 2019-02-21 Pat Name: JEOVANY GALE Department: Room: - Gender: Male Inspector Subassembly: JBetsy : [id number] Requested By: OVIDIO Lance Order Number: [id number] Reading MD: Danyel Lacey Measurements Intervals Penn Laird Rate: 88 P: LA: 0 QRS: -49 QRSD: 106 T: 31 QT: 340 QTc: 412 Interpretive Statements ATRIAL FIBRILLATION LEFT AXIS DEVIATION PATTERN CONSISTENT WITH PULMONARY DISEASE SIMILAR TO 02/02/19 Electronically Signed on 02-21-2019 21:31:44 EDT by Danyel Lacey
[2019-02-21] MEDS: DOCUSATE SODIUM 100 MG CAP PO SCH (23:00)
[2019-02-21 23:01] VITALS: BP 137/97
[2019-02-22] MEDS ORDERED: ALLOPURINOL 100 MG TAB PO SCH
[2019-02-22] MEDS ORDERED: IPRATROPIUM 0.5MG/ALBUTEROL 2.5MG INH SOL UD 3ML (DUONEB)(J7620) NEB SCH (02:00)
[2019-02-22 03:35] LABS: HEMATOCRIT 45.4 % (42.0-52.0); HEMOGLOBIN 13.7 g/dl (13.5-17.5); MEAN CORPUSCULAR HGB CONC 30.2 g/dl (32.0-36.5); MEAN CORPUSCULAR VOLUME 99.6 fl (80.0-96.0); PLATELET COUNT, AUTOMATED 208 10^3/uL (150-450); RED BLOOD COUNT 4.56 10^6/uL (4.30-6.10); WHITE BLOOD COUNT 13.8 10^3/uL (4.0-10.0)
[2019-02-22 03:46] LABS: INR 3.44; PROTHROMBIN TIME 34.6 SECONDS (11.8-14.0)
[2019-02-22 04:00] VITALS: BP 123/77
[2019-02-22 04:05] LABS: ALBUMIN 3.5 GM/DL (3.2-5.2); ALT/SGPT 24 U/L (12-78); BILIRUBIN,TOTAL 0.5 MG/DL (0.2-1.0); BLOOD UREA NITROGEN 66 MG/DL (7-18); CALCIUM LEVEL 9.7 MG/DL (8.8-10.2); CARBON DIOXIDE LEVEL 38 MEQ/L (21-32); CHLORIDE LEVEL 99 MEQ/L (98-107); CREATININE FOR GFR 3.08 MG/DL (0.70-1.30); GLOMERULAR FILTRATION RATE 20.7 (>35); GLUCOSE, FASTING 150 MG/DL (70-100); MAGNESIUM LEVEL 2.2 MG/DL (1.8-2.4); NT-PRO BNP 2589 PG/ML (<450); POTASSIUM SERUM 4.3 MEQ/L (3.5-5.1); SODIUM LEVEL 142 MEQ/L (136-145); TROPONIN I < 0.02 NG/ML (< 0.10)
[2019-02-22] MEDS: methylPREDNISolone INJ 125 MG/2 ML VIAL (J2930) IV SCH ×2 (05:22)
[2019-02-22] MEDS ORDERED: SLF 3 ML SYR IV PRN (05:30)
[2019-02-22] MEDS ORDERED: SLF 3 ML SYR IV SCH (06:00)
[2019-02-22 07:32] VITALS: BP 128/69
[2019-02-22] MEDS ORDERED: FUROSEMIDE 80 MG TAB PO SCH (09:00)
[2019-02-22] MEDS: DOCUSATE SODIUM 100 MG CAP PO SCH (09:00)
[2019-02-22] MEDS ORDERED: SPIRONOLACTONE 12.5MG PER 1/2 TABLET PO SCH (09:00)
[2019-02-22] MEDS ORDERED: CALCITRIOL 0.25 MCG CAP (S0169) PO SCH (09:00)
[2019-02-22] MEDS ORDERED: METOPROLOL TART 25 MG TABLET PO SCH (09:00)
[2019-02-22] MEDS ORDERED: ATORVASTATIN 10 MG TAB PO SCH (09:00)
[2019-02-22] MEDS ORDERED: PROA1AER2 INH (10:19)
[2019-02-22] MEDS ORDERED: PRED20TA PO (10:19)
[2019-02-22] MEDS ORDERED: nebulizer NEB (10:19)
[2019-02-22] MEDS ORDERED: IPRA0.00 NEB (10:19)
--- NOTE | 2019-02-22 15:40 | DS.PDOC ---
Discharge Summary General Date of Admission Feb 21, 2019 at 19:56 Date of Discharge 02/22/19 Attending Physician: EVERARDO SANTOS MD Discharge Summary PROCEDURES PERFORMED DURING STAY: None. ADMITTING DIAGNOSES: 1. COPD Exacerbation 2. History of CHF 3. History of A-Fib 4. HTN 5. CKD stage 3 DISCHARGE DIAGNOSES: 1. COPD Exacerbation 2. History of CHF 3. History of A-Fib 4. HTN 5. CKD stage 3 COMPLICATIONS/CHIEF COMPLAINT: Chf,Copd Exacerbation. 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 He was recently discharged from [facility] for a CHF exacerbation. The patient had stated that he called his PCP regarding his shortness of breath and stated that he needed a nebulizer treatment. The patient stated that he was instructed to go to the ER to receive treatment. When he arrived at the ER the patient received Duonebs. He was hypoxi c with O2 saturations of 86%. Patient was placed on nasal cannula and admitted to hospitalist service for further evaluation and management During the course of the patients hospitalization he received a chest x-ray which was unrevealing. He did not have a fever or elevated white count. Patient had elevation of his BMP. On assessment in the morning the patient stated that he was no longer short of breath. He was still on supplemental oxygen. The patient had stated that he would like to go home. He was instructed that this would be AGAINST MEDICAL ADVICE. He stated that he "did not care" and that he is "going home no matter what". The patient was instructed on the risks of leaving the hospital AGAINST MEDICAL ADVICE. He stated that he understood the risks and subsequently signed out of the hospital AMA. The patient was prescribed an albuterol inhaler. He was also prescribed a 5 days course of prednisone and a nebulizer for at home nebs. The patient was instructed to follow-up with his PCP within a week DISCHARGE MEDICATIONS: Please see below. ALLERGIES: Please see below. PHYSICAL EXAMINATION ON DISCHARGE: VITAL SIGNS: Please see below. GENERAL: Awake, alert, and oriented. Appears in no acute distress. Lying in recliner with nasal cannula HEENT: Atraumatic normocephalic. eyes are nonicteric. Trachea is midline. Hearing aids are in place NECK: No palpable cervical, axillary, or supraclavicular lymphadenopathy CARDIOVASCULAR EXAMINATION: Normal S1, S2. Regular rate and rhythm. No clicks rubs or murmurs RESPIRATORY EXAMINATION: Diminished breath sounds throughout. Fine crackles in the bases. No wheezes or rhonchi. Symmetric chest expansion. Prolonged expiratory phase ABDOMINAL EXAMINATION: Soft, obese. Nondistended. Nontender to palpation in all 4 quadrants. no rebound tenderness or guarding. Normoactive bowel sounds throughout EXTREMITIES: 1-2mm pitting edema in bilateral lower extremities. Full and equal pulses in bilateral upper and lower extremities SKIN: No rashes or lesions NEUROLOGICAL EXAMINATION: No focal neurological deficits PSYCHIATRIC EXAMINATION: Mood and affect appear appropriate LABORATORY DATA: Please see below. IMAGING: CHEST X-RAY: TWO VIEWS. HISTORY: Dyspnea and cough. COMPARISON STUDY: February 02, 2019 FINDINGS: Monitoring electrodes are seen. Mild cardiomegaly is observed. The cardiothoracic ratio measures 54.7%. Pulmonary vasculature is not increased. Pleural angles are sharp. There are degenerative changes in the thoracic spine. IMPRESSION: Moderate cardiomegaly. No evidence of pleural effusion or pulmonary edema. No focal infiltrate. Electronically Signed by Christopher Diaz MD 02/21/2019 06:47 P PROGNOSIS: Good ACTIVITY: As tolerated. DIET: 2G sodium restricted DISCHARGE PLAN: Patient has left AGAINST MEDICAL ADVICE. He was advised on the risks of leaving AGAINST MEDICAL ADVICE. The patient has voiced understanding. The patient was instructed to follow-up with his PCP in 1-2 weeks. He was prescribed an albuterol inhaler. He was given prednisone 40 mg daily for 5 days. Patient was instructed to use a nebulizer as needed for wheezing and shortness of breath DISPOSITION: 07 Against Medical Advice. DISCHARGE CONDITION: Stable. I saw and evaluated the patient. I agree with the findings and plan of care as documented in the documenters note. I spent 45 minutes coordinating this patient's discharge. Patient elected to leave the hospital AGAINST MEDICAL ADVICE and personally met with the patient attempted to encourage him to stay waiting outlining risks versus benefits up to and including patient declined offers for continued medical care evaluation diagnostic testing treatment interventions. He demonstrated good understanding of our conversation with hospice medical advice. He does not need to remain in hospital contradictory to the opinion of medical medications and equipment were provided the patient TO arrange for a safe disposition the patient would allow for. He has a high likelihood of recurrent hospitalization was advised to seek out medical care emergently should he feel unwell Vital Signs/I&Os Vital Signs Date Time Temp Pulse Resp B/P (MAP) Pulse Ox O2 Delivery O2 Flow Rate FiO2 02/22/19 07:32 97.4 71 20 128/69 (88) 94 2.0 02/21/19 13:00 Nasal Cannula 02/21/19 12:50 87 I&O- Last 24 Hours up to 6 AM 02/22/19 06:00 Intake Total 0 ml Output Total 500 ml Balance -500 ml Laboratory Data Labs 24H Laboratory Tests 2 02/22/19 03:26: Nucleated Red Blood Cells % (auto) 0.0, Prothrombin Time 34.6H, Prothromb Time International Ratio 3.44, Anion Gap 5L, Glomerular Filtration Rate 20.7L, Calcium Level 9.7, Magnesium Level 2.2, Total Bilirubin 0.5, Aspartate Amino Transf (AST/SGOT) 10, Alanine Aminotransferase (ALT/SGPT) 24, Alkaline Phosphatase 106, Troponin I < 0.02, CB-Myd-J-Type Natriuretic Peptide 2589H, Total Protein 7.0, Albumin 3.5, Albumin/Globulin Ratio 1.00 02/22/19 09:11: Troponin I < 0.02 CBC/BMP Laboratory Tests 02/22/19 03:26 Microbiology Microbiology 02/21/19 Gram Stain - Final, Resulted 02/21/19 Sputum Culture, Resulted Pending 02/21/19 Blood Culture - Preliminary, Resulted No growth after 24 hours . All specim... 02/21/19 Blood Culture - Preliminary, Resulted No growth after 24 hours . All specim... Discharge Medications Scheduled Allopurinol (Allopurinol) 100 Mg Tab, 200 MG PO QHS, (Reported) Atorvastatin Calcium (Atorvastatin Calcium) 10 Mg Tab, 10 MG PO DAILY, (Reported) Calcitriol (Calcitriol) 0.25 Mcg Capsule, 0.25 MCG PO DAILY, (Reported) Furosemide (Furosemide) 80 Mg Tab, 80 MG PO DAILY, (Reported) Ipratropium/Albuterol Sulfate (Iprat-Albut 0.5-3(2.5) mg/3 ml) 3 Ml Ampul.neb, 3 ML NEB RQ6H Metoprolol Tartrate (Metoprolol Tartrate) 25 Mg Tablet, 25 MG PO DAILY, (Reported) Multivitamin (Multi-Vitamin Daily) 1 Tab Tab, 1 TAB PO DAILY, (Reported) Omeprazole (Omeprazole) 40 Mg Capsule.dr, 1 CAP PO DAILY, (Reported) Prednisone (Prednisone) 20 Mg Tablet, 1 TAB PO BID Spironolactone (Spironolactone) 25 Mg Tablet, 12.5 MG PO DAILY, (Reported) Warfarin Sodium (Warfarin Sodium) 5 Mg Tablet, 5 MG PO 5XW, (Reported) SUN//WED/WED/SAT Warfarin Sodium (Warfarin Sodium) 5 Mg Tablet, 7.5 MG PO 2XW, (Reported) MON/THURS Scheduled PRN Albuterol Sulfate (Proair Respiclick) 90 Mcg Aer.pow.ba, 2 PUFF INH Q4-6HP PRN for shortness of breath Allergies Coded Allergies: No Known Allergies (Unverified , 09/07/18) ADAN JERRY DO Feb 22, 2019 15:40 EVERARDO SANTOS MD Feb 23, 2019 13:47
[2019-02-22] MEDS ORDERED: WARFARIN SOD 5 MG TAB PO SCH (17:00)
[2019-02-23] MEDS ORDERED: WARFARIN SOD 5 MG TAB PO SCH (17:00)
== END 2019-02-22 10:51 | disposition left against medical advice (07) | DRG 191 ==
LOC: M ED 12:25 → M ED INP 19:56 → M PCU 22:50
PROVIDERS: ADMIT Internal Medicine; ATTEND Internal Medicine
DX: J44.1 Chronic obstructive pulmonary disease with (acute) exacerbation (principal); I13.0 Hypertensive heart and chronic kidney disease with heart failure and stage 1 through stage 4 chronic kidney disease, or unspecified chronic kidney disease; I48.20 Chronic atrial fibrillation, unspecified; I25.10 Atherosclerotic heart disease of native coronary artery without angina pectoris; N18.3 Chronic kidney disease, stage 3 (moderate); K21.9 Gastro-esophageal reflux disease without esophagitis; Z66 Do not resuscitate; Z79.01 Long term (current) use of anticoagulants; Z79.899 Other long term (current) drug therapy; Z85.6 Personal history of leukemia; Z85.831 Personal history of malignant neoplasm of soft tissue; Z87.891 Personal history of nicotine dependence; Z86.79 Personal history of other diseases of the circulatory system; Z98.49 Cataract extraction status, unspecified eye; Z90.49 Acquired absence of other specified parts of digestive tract; Z90.5 Acquired absence of kidney; Z85.828 Personal history of other malignant neoplasm of skin; Z85.21 Personal history of malignant neoplasm of larynx; I50.9 Heart failure, unspecified